=== PATIENT | male | born 1990 | race Caucasian/White ===

== ENCOUNTER 2016-08-28 15:37 | Inpatient (IN) | payer BC, OTHER ==
[~2016-08-28] VITALS: Ht 188 cm; Wt 85.0 kg
[~2016-08-28 15:37] MED LIST: GABA1CAP5 PO; ZLF/50 PO
[2016-08-28 16:57] LABS: HEMATOCRIT 46.8 % (42-52); MEAN CELL VOLUME 90.2 fL (80-100); MEAN CORPUSCULAR HEMOGLOBIN 30.4 pg (25-34); MEAN CORPUSCULAR HGB CONC 33.8 g/dl (32-36); MEAN PLATELET VOLUME 10.3 fL (7.4-10.4); PLATELET COUNT 222 K/uL (130-400); RED BLOOD COUNT 5.19 M/uL (4.7-6.1); WHITE BLOOD COUNT 8.57 K/uL (4.8-10.8)
[2016-08-28 17:16] LABS: ACETAMINOPHEN < 2 ug/ml (10-30); BUN/CREATININE RATIO 12.4 (10-20); CALCIUM 8.4 mg/dl (8.5-10.1); CREATININE 0.9 mg/dl (0.60-1.40); POTASSIUM 4.2 mmol/L (3.5-5.1)
[2016-08-28 17:26] LABS: THYROID STIMULATING HORMONE 0.298 uIu/ml (0.300-4.500)
--- NOTE | 2016-08-28 17:52 | EMERGENCY ROOM VISIT NOTE ---
History Report prepared by Andres: [facility] Under the Supervision of: Dr. Omero Alexander M.D. First contact with patient: 15:52 Chief Complaint: MENTAL HEALTH EVALUATION Stated Complaint: MENTAL HEALTH EVAL History of Present Illness The patient is a 25 year old male with manic depression disorder who presents to the Emergency Room with complaints of increasing suicidal ideations that started after being brought to [facility] days ago. Per the police, the patient was brought from [facility]. The patient had a hearing today, and the stipulation from the rough rounder is that if the patient commits to a treatment facility, the patient will his group home sentence, which was for violating PFA, converted to probation time. The police state that there have been some incidents with the patient in [facility], and there is a 302 petition for him. Per the patient, he tried to kill himself 3 days ago when he first got to group home. The patient was put in a room to change clothing, and he pulled his shoelaces out and had his laces tied around his neck hoping the group home staff would wait until he could successfully kill himself. The patient was caught in the act and placed on suicide watch. The next night, he says that he took his blanket and ripped it into little pieces, and tied the pieces around a light, and tried to hang himself, but the group home staff busted the door open and took his clothes off to make sure the patient has no way to hang himself again. The patient notes that he has been telling group home staff that he needs help. Today, the patient states that he got really suicidal during the hearing, and he currently wants to kill himself. The patient says that he has not been on any medications for any of his psychiatric issues, and hasn't been on any for a year. He says that he has no other chronic medical issues other than his psychiatric ones. The patient does not drink alcohol, but he does note lots of drug use. Source of History: patient, police Onset: 3 days ago Position: other (global - suicidal ideations) Symptom Intensity: tried to hang himself twice in past 3 days Quality: other (depression and suicidal ideation) Timing: worsening Associated Symptoms: No fevers Note: Associated symptoms: Currently wants to kill himself. Review of Systems See HPI for pertinent positives & negatives. A total of 10 systems reviewed and were otherwise negative. Past Medical & Surgical Medical Problems: (1) Encounter for wound re-check (2) No pertinent past medical history (3) No pertinent past surgical history (4) Pilonidal cyst Family History No pertinent family history Social History Smoking Status: Heavy Tobacco Smoker Alcohol Use: none Drug Use: other (admits to drug use) Marital Status: in relationship Housing Status: lives with significant other Occupation Status: employed Current/Historical Medications No Active Prescriptions or Reported Meds Allergies Coded Allergies: Penicillins (Verified Allergy, Mild, Hives, itching, 08/28/16) Tramadol (Unverified Adverse Reaction, Unknown, ITCHING, 08/28/16) Physical Exam Vital Signs Date Time Temp Pulse Resp B/P Pulse Ox O2 Delivery O2 Flow Rate FiO2 08/28/16 17:53 61 18 119/75 61 Room Air 08/28/16 15:53 36.7 80 18 119/80 100 Room Air Physical Exam Constitutional: Vital signs reviewed. Eyes: Pupils are equal round reactive to light. Conjunctiva are noninjected. ENT: Pharynx is clear without erythema or exudate. Mucous membranes are moist. Neck supple without meningeal signs. Respiratory: Clear to auscultation bilaterally. Breath sounds are equal bilaterally. Cardiovascular: Regular rate and rhythm. No rubs or gallops. GI: Soft, nondistended and nontender. Bowel sounds are present. Musculoskeletal: No peripheral edema. No lower extremity tenderness. Integumentary: No cyanosis. Neurological: The patient is awake and alert. No focal deficits. Psychiatric: Guarded affect. Medical Decision & Procedures Laboratory Results 08/28/16 16:38 08/28/16 16:38 Test 08/28/16 16:00 08/28/16 16:38 Urine Opiates Screen NEG (NEG) Urine Methadone, Qualitative NEG (NEG) Urine Barbiturates NEG (NEG) Urine Phencyclidine (PCP) Level NEG (NEG) Ur Amphetamine/Methamphetamine POS (NEG) MDMA (Ecstasy) Screen NEG (NEG) Urine Benzodiazepines Screen NEG (NEG) Urine Cocaine Metabolite NEG (NEG) Urine Marijuana (THC) NEG (NEG) Red Blood Count 5.19 M/uL (4.7-6.1) Mean Corpuscular Volume 90.2 fL (80-100) Mean Corpuscular Hemoglobin 30.4 pg (25-34) Mean Corpuscular Hemoglobin Concent 33.8 g/dl (32-36) RDW Standard Deviation 43.7 fL (36.4-46.3) RDW Coefficient of Variation 13.2 % (11.5-14.5) Mean Platelet Volume 10.3 fL (7.4-10.4) Anion Gap 3.0 mmol/L (3-11) Est Creatinine Clear Calc Drug Dose 144.7 ml/min Estimated GFR () 136.1 Estimated GFR (Non- 117.5 BUN/Creatinine Ratio 12.4 (10-20) Calcium Level 8.4 mg/dl (8.5-10.1) Total Bilirubin 0.6 mg/dl (0.2-1) Direct Bilirubin 0.2 mg/dl (0-0.2) Aspartate Amino Transf (AST/SGOT) 20 U/L (15-37) Alanine Aminotransferase (ALT/SGPT) 70 U/L (12-78) Alkaline Phosphatase 58 U/L (45-117) Total Protein 7.1 gm/dl (6.4-8.2) Albumin 3.9 gm/dl (3.4-5.0) Thyroid Stimulating Hormone (TSH) 0.298 uIu/ml (0.300-4.500) Free Thyroxine 1.23 ng/dl (0.80-1.60) Salicylates Level 2.7 mg/dl (2.8-20) Acetaminophen Level < 2 ug/ml (10-30) Ethyl Alcohol mg/dL < 3.0 mg/dl (0-3) Laboratory results as reviewed by me. ED Course 1555: The patient was evaluated in room A8. A complete history and physical exam was performed. 1640: I talked to the nurse practitioner for [facility] - she will talk to Dr. Amaro of psychiatry and recommends that I sign the 302 for the patient. She thinks that Dr. Amaro will agree. 1656: I discussed the patient with Dr. Amaro - psychiatry - she would recommend that sign the 302. 1830: I was notified by the sample case porter that the patient will be going to [facility] for further evaluation. The patient expressed verbal understanding and agreement of the plan. Medical Decision This is a 25-year-old male brought here for mental health evaluation. I did perform a limited focused review of portions of the patient's old chart on the electronic medical record. The patient was here for depression in August of last year. He also overdosed on Gabapentin, and eloped during assessment. I did evaluate the patient as noted above. The patient attempted to kill himself twice over the past several days. He says he is suicidal and is not on any psychiatric medications at this time despite his bipolar disorder. I did order and personally review the patient's urine drug screen as described above. I did order and review the patient's blood work as noted in the electronic medical record. The patient was medically cleared. He was evaluated by [facility] who issued a 302 warrant for involuntary commitment. I did discuss the case with the psychiatrist ironworker machine operator, Dr. Amaro, who agreed that the patient should be involuntarily committed. I did sign the 302. Bed search was initiated. He was evaluated and accepted to [facility]. Consults Time Called: 1635 Consulting Physician: Nurse practitioner for [facility] Returned Call: 1640 I talked to the nurse practitioner for [facility] - she will talk to Dr. Amaro of psychiatry and recommends that I sign the 302 for the patient. She thinks that Dr. Amaro will agree. Additional Consults: Time Called: -- Consulted Physician: Dr. Amaro - psychiatry Returned Call: 1655 Additional Comments: I discussed the patient with Dr. Amaro - psychiatry - she would recommend that sign the 302. Impression Primary Impression: Suicide attempt by hanging Additional Impression: Mood disorder Scribe Attestation The scribe's documentation has been prepared under my direct and personally reviewed by me in its entirety. I confirm that the note above accurately reflects all work, treatment, procedures, and medical decision making performed by me. Departure Information Dispostion Mental Health Acute Care Prescriptions No Active Prescriptions or Reported Meds Referrals [facility] (PCP) Patient Instructions My [facility] Problem Qualifiers Primary Impression: Suicide attempt by hanging Encounter type: initial encounter Qualified Codes: T71.162A - Asphyxiation due to hanging, intentional self-harm, initial encounter
[2016-08-28 17:55] LABS: BENZODIAZEPINE, URINE NEG (NEG); COCAINE,URINE NEG (NEG); PHENCYCLIDINE, URINE NEG (NEG)
[2016-08-28] MEDS ORDERED: NURSING VERBAL MED ORDER ONE ×2 (18:30→19:00)
[2016-08-28] MEDS ORDERED: ACETAMINOPHEN 325 MG TAB PO PRN (19:00)
[2016-08-28] MEDS ORDERED: ALUMINUM/MAGNESIUM SUSP 30 ML UDC PO PRN (19:00)
[2016-08-28] MEDS ORDERED: SODIUM CHLORIDE 0.65% NA SOLN 45 ML (OCEAN) PRN (19:00)
[2016-08-28] MEDS ORDERED: MAGNESIUM HYDROXIDE SUSP 30 ML UDC PO PRN (19:00)
[2016-08-28] MEDS ORDERED: hydrOXYzine HCL 25 MG TAB PO PRN ×2 (19:00)
[2016-08-28] MEDS ORDERED: BISMUTH SUBSALICYLATE PER ML OMNICELL CHARGE PO PRN (19:00)
[2016-08-28 22:35] VITALS: O2SAT 96
[2016-08-28 23:02] VITALS: BP 133/77; PULSE 82; TEMP 36.7; Ht 188 cm; Wt 85.0 kg
[2016-08-29 06:36] VITALS: BP_SYST 114; BP_SYST 123; BP_DIAS 73; BP_DIAS 75; PULSE 45; PULSE 55; TEMP 36.3
[2016-08-29] MEDS ORDERED: SERTRALINE HCL 50 MG TAB PO ONE (12:30)
[2016-08-29] MEDS ORDERED: CLONIDINE HCL 0.1 MG TAB PO ONE (12:30)
--- NOTE | 2016-08-29 12:35 | Psychiatric History & Physical ---
History Date of Service Aug 29, 2016. Identifying Data Manuel Germain is a 25-year-old male who currently lives in [place], has a history of polysubstance abuse and mood disorder with multiple suicide attempts and psychiatric admissions to the [facility], and was admitted on a 302 involuntary commitment after intermediate staff brought him to the emergency room due to multiple suicide attempts while in intermediate in the context of arrest for a PFA violation. Chief Complaint "I felt there was no possible way to get out of the situation I was in". History of Present Illness This is the patient's first admission to our behavioral health unit, although he 's had 4 past admissions to the [facility] for depression and suicide attempts. According to records, he was brought to the emergency room yesterday by police. He had been in intermediate for the past several days after being arrested for violating a PFA from his ex-girlfriend. He had tried to kill himself multiple times while in intermediate, once by pulling his shoelaces out and tying them around his neck, and then again by ripping his blanket into pieces, tying them around to light, and attempting to hang himself. He had a hearing yesterday, during which the pulping machine operator gave him the option of getting psychiatric treatment or returning to intermediate. The patient admitted he was suicidal during the hearing, and admitted active suicidal thoughts in the emergency room. He said that he had been off psychotropic medications for a year due to losing insurance, and admitted to using methamphetamine and/or bath salts daily for over a year, and drug screen was positive for amphetamines/methamphetamine. Staff at the intermediate had completed a 302 petition. On admission to the unit, he gave some inconsistent reports to staff regarding his substance use and suicidality. He admitted that he had several suicide attempts in the 5 days prior to admission, including by going to the top of the building after he had violated the PFA, holding a knife to his throat, and having to be talked down by police. On my assessment today, the patient states that his girlfriend of 8 years filed a PFA against him about a week and a half ago, alleging that he had threatened her life, which he denies doing. He states that she has also filed PFA's against him in the past, although he denies ever harming her, stating "I'd never hurt a woman." He says that he was and is still in love with her, and has struggled to accept that the relationship is over. He says that he became "obsessed" with "getting closure," so contacted her via text message on Saturday, 5 days ago. He says he made statements that she would "rather see me ," and he assumes that she then contacted police, because shortly afterward, he saw a helicopter come into his neighborhood with its spotlight on, and thinks they were looking for him." He states that drove by her house at a high rate of speed, 205 miles per hour, and saw that "the house was packed with police." He says he was driving extremely fast, hoping that someone would pulling out in front of him, "just know cares in the world, just wanted to end it." He then drove to his parent's house, where he got into a confrontation with his father. He said "I knew I was going to do intermediate time, and that wasn't gonna help." He then "took off and ran to the [place]," and then climb to the top of the building and hid on the roof, where he watched people searching for him in the [place] with flashlights. They eventually saw him, and he got out a pocket knife and threatened to kill himself, refusing to get down from the building. He says "I had a knife to my throat and was ready to end it." Eventually one of the officers talked him into coming down, and he was taken to intermediate. He feels he was misinformed in intermediate, as he says he was told he would get mental health help , but instead was placed in a cell. He admits he attempted to kill himself twice in intermediate, as detailed above. He is now feeling more hopeful that he could feel better, stating "this is an amazing facility, I just want to get back on my meds I can get back on track and get back to being me." He feels he is accepting that his relationship was over and "it's time to move on." He admits that he has been depressed recently and describes his mood as "on a downward spiral" for the past couple of weeks. His mood tends to vacillate between depressed and angry and switches multiple times a day. He endorses decreased appetite with a 30 pound weight loss over the past month or so, distractibility , crying spells, and decreased sleep. Sleep is chronically disrupted and he sleeps with the television on. He endorses irritability and anger outbursts, stating that he is a very impulsive person and "if I get mad at someone, I'm in the car on the way to their house to kill them." He reports impulsivity, stating "when I'm in that mind state I just don't care, that's how my mind works." When he was on clonidine in the past he felt it was helpful and allowed him to "just stop and think." There are some noted contradictions, including that he later denies ever having been violent or aggressive towards others. He says he has a history of "manic depression, not bipolar," but denies all symptoms consistent with hypomania or graeme, and says his graeme consists of "extreme anger, and nothing can talk me out of it." He denies episodes of elevated euphoric mood, increased energy, or decreased need for sleep outside of his stimulant abuse. He denies symptoms of generalized anxiety , PTSD, OCD, panic attacks, and psychosis. He admits to daily use of bath salts and/or meth amphetamine for the past 2-1/2 years, which he smokes. He does not feel this is a problem, stating that he's been using for over 2 years every day, and "no one ever knew. It gets me back to my happy place. The only reason I was doing the drugs was because I didn't have the meds." Past Psychiatric History Current OP Treatment: no current treatment Prior OP Treatment: psychiatrist, therapist Prior Psych Hospitalizations: [facility] (4 admissions, the first 2 were 10 years ago, and the second two were in 2016) Access to a Gun: No Suicide Attempts: Yes (the patient estimates he has had 40 suicide attempts, some by overdose, threats to cut himself, and hanging) Past Medication Trials The patient states that the only medicines he been on in the past were a combination of Zoloft 50 mg, clonidine, and Thorazine for sleep, which were helpful. He stopped them when he lost insurance and stopped going to appointments. Additional Notes Patient states he's been diagnosed with "manic depressive with impulsivity and anger." Records from the [facility] are not available, as his last admission was in August 2015, and these are apparently stored offsite. He does not know the names of his previous outpatient providers, and has not been in outpatient treatment for over a year. Violence risk assessment: The patient denies ever being physically aggressive towards others, but at other times gives conflicting statements, stating that he will get angry and "be in the car on the way to someone's house to kill them. " He does have a PFA against him from his girlfriend, who alleged that he threatened her life, which he denies. His substance use is also a risk factor for violence to others. Past Medical/Surgical History History of Concussion/Seizure: Yes (the patient reports a history of a head injury in 2005) PCP is Dr. Tone Linton Allergies Allergies: Coded Allergies: Penicillins (Verified Allergy, Mild, Hives, itching, 08/28/16) Tramadol (Unverified Adverse Reaction, Unknown, ITCHING, 08/28/16) Home Medications No Active Prescriptions or Reported Meds Family History No pertinent family history History of Suicide: No History of Substance Abuse: Yes (brother is an addict and has been incarcerated for selling drugs, and multiple family members smoke marijuana) Psychiatric History: Yes (mother is diagnosed with depression and is on sertraline. Father has unknown mood disorder.) Alcohol Use Alcohol Use In Past 12 Months: No AUDIT Total Score: 0 Smoking Use Smoking Status: Light Tobacco Smoker Smokes up to one half pack per day. Has not smoked in about 5 days due to being incarcerated. Substance History Has used synthetic stimulants and/or methamphetamine (smokes it) daily for the past 2-1/2 years. Last use was 08/24/2016. Drug screen is positive for methamphetamine. Long history of prescription opiate abuse, including Percocet, Suboxone, or "whatever is around." Last use was within the past week, but frequency of use has decreased recently and is once every 1-4 weeks. In the past he has had opiate withdrawal, and attended a detox in 2009. He denies any history of IV drug use. He has used cannabis in the past, but not in several months, although he cannot recall the exact timing of his last use. His longest period of sobriety was for 2 years. He initially denies any negative effects of his substance use, but then admits that a couple of years ago he was fired from his job at [employer] due to his substance use, but does not see this as a negative, as he was then hired at [employer] where he makes more money. He denies any history of legal problems stemming from his substance use. Personal History Lives in: [place] Childhood: Raised by both parents, who are still together and live in [place]. Has a good relationship with them, "they are amazing people, let me do whatever I want , and I thank them for that." He has one older brother who he refers to as "a piece of shit," who was recently released from [facility] on drug charges. 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 He states he has a very good job, makes good money, and enjoys it. His has already spoken to his employer, and is anxious to be discharged as soon as possible to return to work. Relationship History: never Children: none Legal History: reported (recently arrested for PFA violation) Psychological Trauma History: Other (denies) Additional Comments: Had been with his girlfriend for 8 years, but she now has a PFA against him. He has a good friend who is known since elementary school, Jose, who is supportive. Review of Systems 10 systems were reviewed and are negative except as stated above. Examination Physical Examination The physical exam performed in the emergency room by Dr. Alexander was reviewed and accepted for the purposes of this admission Vital Signs Vital Signs Past 12 Hours Date Time Temp Pulse Resp B/P Pulse Ox O2 Delivery O2 Flow Rate FiO2 08/29/16 06:36 36.3 45 18 123/73 55 114/75 Laboratory Results Last 24 Hours Test 08/28/16 16:00 08/28/16 16:38 Urine Opiates Screen NEG Urine Methadone, Qualitative NEG Urine Barbiturates NEG Urine Phencyclidine (PCP) Level NEG Ur Amphetamine/Methamphetamine POS MDMA (Ecstasy) Screen NEG Urine Benzodiazepines Screen NEG Urine Cocaine Metabolite NEG Urine Marijuana (THC) NEG White Blood Count 8.57 K/uL Red Blood Count 5.19 M/uL Hemoglobin 15.8 g/dL Hematocrit 46.8 % Mean Corpuscular Volume 90.2 fL Mean Corpuscular Hemoglobin 30.4 pg Mean Corpuscular Hemoglobin Concent 33.8 g/dl RDW Standard Deviation 43.7 fL RDW Coefficient of Variation 13.2 % Platelet Count 222 K/uL Mean Platelet Volume 10.3 fL Sodium Level 143 mmol/L Potassium Level 4.2 mmol/L Chloride Level 108 mmol/L Carbon Dioxide Level 32 mmol/L Anion Gap 3.0 mmol/L Blood Urea Nitrogen 11 mg/dl Creatinine 0.90 mg/dl Est Creatinine Clear Calc Drug Dose 144.7 ml/min Estimated GFR () 136.1 Estimated GFR (Non- 117.5 BUN/Creatinine Ratio 12.4 Random Glucose 107 mg/dl Calcium Level 8.4 mg/dl Total Bilirubin 0.6 mg/dl Direct Bilirubin 0.2 mg/dl Aspartate Amino Transf (AST/SGOT) 20 U/L Alanine Aminotransferase (ALT/SGPT) 70 U/L Alkaline Phosphatase 58 U/L Total Protein 7.1 gm/dl Albumin 3.9 gm/dl Thyroid Stimulating Hormone (TSH) 0.298 uIu/ml Free Thyroxine 1.23 ng/dl Salicylates Level 2.7 mg/dl Acetaminophen Level < 2 ug/ml Ethyl Alcohol mg/dL < 3.0 mg/dl Mental Examination During interview pt is: alert and oriented, cooperative Appearance: appropriately dressed, appropriately groomed (red hair styled in a estonian with a long stevenson) Eye contact is: good Motor behavior is: steady gait & station, no abnormal motor movements Speech: normal in rate, rhythm & volume Affect: other (full range) Mood is: other ("I'm feeling better just being here") Thought process: goal directed Thought content: reality based without delusions Suicidal thought are: denied (feels safe here, but admits that he was suicidal and attempted suicide 3 times in the past 5 days) Homicidal thoughts are: denied Hallucinations: denies auditory, denies visual Cognition: memory grossly intact, attention grossly intact, language grossly intact Intelligence estimated to be: consistent with level of education Insight: impaired Judgement: impaired Impression / Recommendations Impression 25-year-old single white male with a history of poorly defined mood disorder and pervasive substance abuse who presents on referral from the intermediate where he attempted suicide twice in 4 days after being arrested for violating a PFA from his ex-girlfriend. He has been out of treatment for about a year, but reports previous good response to sertraline, chlorpromazine, and clonidine. He endorses symptoms consistent with depression, intermittent explosive disorder, and substance abuse. Although he is willing to resume medications, he has very poor insight into the role his drug abuse may be playing in his symptoms. He remains at high risk to both himself and others, given his recent PFA and then violation of it and multiple suicide attempts. Inpatient treatment is the least restrictive and most appropriate venue at this time. He is admitted on an involuntary 302 commitment. Inventory Assets Strengths: Employment, supportive family Risk Factors Assessment Male: Yes : Yes /single/: Yes Health problems: No Mental Health Diagnoses: Yes Substance use disorders: Yes Previous attempt: Yes Previous attempt;highly lethal: Yes Family history of suicide: No Previous psychiatric stay: Yes Hopelessness: No Smoker: Yes Protective Factors Assessment : No Responsible for young children: No Employed: Yes Stable relationships: No Supportive family: Yes Good rapport with provider: No Recommendations (1) Suicide attempt by hanging -Every 15 minute checks for safety -Encourage group attendance and participation, work on healthy coping skills and discharge safety plan. -Involve parents in family meeting. -Coordinate care with the legal system and his interface control officer. (2) Depression not otherwise specified -Although patient reports a history of "manic depression," he does not meet criteria for bipolar disorder. The differential includes substance-induced depression and major depressive disorder. Since he reports a previous good response to sertraline and is requesting to resume it, will start at 50 mg daily. We reviewed the risks, benefits, and potential side effects, and he agreed. We'll monitor for mood destabilization or development of manic symptoms. -He is requesting to resume Thorazine for sleep. Although this would not be my first choice, he reports a previous good response to it, and it may also help with his anger, so will start 50 mg daily at bedtime and monitor for response. -Educated the patient about his diagnosis and things that he can do to improve and stabilize his mood, including addressing his drug abuse, developing healthier habits with respect to sleep and diet, and engaging in therapy. (3) Rule out intermittent explosive disorder -The patient reports a previous good response to clonidine for his impulsivity and anger, and would like to resume it. Will start 0.1 mg daily, and adjust as needed. -Would be helpful to get collateral information from his family, as he gives inconsistent reports about his anger outbursts and aggression. (4) Stimulant abuse -The patient has been using meth amphetamine and or synthetics stimulants daily for the over 2 years. He has very little insight into the concerns with this. -Educated the patient about the risks of ongoing stimulant abuse, including worsening of mood and anxiety, impaired judgment, worsening irritability and anger outbursts, impulsivity, legal sequelae, health problems, interactions with other medications, and . He is unwilling to consider the recommendation for inpatient rehabilitation or even outpatient substance abuse treatment, feeling that he can stop using on his own. We will need to continue to address this throughout the course of his stay, and would recommend coordinating with his interface control officer regarding concerns for his substance use. -Would not prescribe him any controlled substances due to the high risk of abuse , misuse, and negative outcomes. (5) Opiate abuse, continuous -The patient states that his opiate use has been decreased in recent months, using only once a week to once a month, so is at low risk for opiate withdrawal. -He will require ongoing education about the risks of continued substance abuse and the recommendations for abstinence. (6) Involuntary commitment We reviewed his 302 commitment, and answered questions about restrictions on gun ownership. He was informed that per [place] law, he cannot own, purchase, or possess firearms, and that he could pursue legal recourse through the courts should he wish to have his firearm rights reinstated. He expressed understanding. -Will continue to gather information to determine the need for further commitment on an involuntary status throughout the course of his stay. CPT Code Initial Hospital Care: 62008 Problem Qualifiers (1) Suicide attempt by hanging: Encounter type: initial encounter Qualified Codes: T71.162A - Asphyxiation due to hanging, intentional self-harm, initial encounter
[2016-08-29 12:58] VITALS: BP 129/82; PULSE 93
[2016-08-29] MEDS: NICOTINE POLACRILEX 2 MG GUM MT PRN (14:07)
[2016-08-29] MEDS: CHLORPROMAZINE HCL 25 MG TAB PO SCH (21:46)
[2016-08-30 08:09] VITALS: BP 129/70; PULSE 58; TEMP 36.6
[2016-08-30] MEDS: CLONIDINE HCL 0.1 MG TAB PO SCH (08:51)
[2016-08-30] MEDS: SERTRALINE HCL 50 MG TAB PO SCH (08:51)
[2016-08-30] MEDS: NICOTINE POLACRILEX 2 MG GUM MT PRN ×2 (09:24→16:33)
--- NOTE | 2016-08-30 13:20 | Psychiatric Progress Notes ---
Progress Note Date of Service Aug 30, 2016. Interval History Manuel Germain is a 25-year-old male who currently lives in [place], has a history of polysubstance abuse and mood disorder with multiple suicide attempts and psychiatric admissions to the [facility], and was admitted on a 302 involuntary commitment after [facility] staff brought him to the emergency room due to multiple suicide attempts while in [facility] in the context of arrest for a PFA violation. Chief Complaint "I feel so much better ". Subjective Patient was seen & assessed interval progress reviewed with nursing. Staff report he is going to groups, taking medications without difficulty, and has a meeting with his parents today. 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 He has not talked to anyone from the legal system to determine who he is PO is or when they will meet. He was living with his girlfriend until she got the PFA, but after discharge plans to live with a friend in [place]. His parents also live in [place]. He his not sure where he will follow up after discharge. He denies withdrawal symptoms, and denies SI and HI. [facility] from the [facility] were reviewed and indicate that he was threatening to kill himself and others, said he would be in penitentiary for life for murder. He also said he would shoot himself when he got out of [facility], and that he should have slit his throat. He says he doesn't have any guns and neither does his friend he's living with. His parents have guns and they are locked up. He denies thoughts of harming others, and says he does not plan to have further contact with his ex. He states he can already feel the effects of the clonidine , as he is able to stop and think more before he speaks. Sleep Information Total Hours of Sleep: 7.00 Meal Information Percent of Breakfast Consumed: 100 Percent of Lunch Consumed: 100 Percent of Dinner Consumed: 100 Mental Status Exam During interview pt is: alert and oriented, cooperative Appearance: appropriately dressed, appropriately groomed (red hair styled in a swedish with a long stevenson, smells strongly of cologne) Eye contact is: good Motor behavior is: steady gait & station, no abnormal motor movements Speech: normal in rate, rhythm & volume Affect: other (full range, inappropriately euthymic at times) Mood is: other ("so much better") Thought process: goal directed Thought content: reality based without delusions Suicidal thought are: denied (feels safe here, but admits that he was suicidal and attempted suicide 3 times in the 5 days prior to admission) Homicidal thoughts are: denied Hallucinations: denies auditory, denies visual Cognition: memory grossly intact, attention grossly intact, language grossly intact Intelligence estimated to be: consistent with level of education Insight: impaired Judgement: impaired Impression 25-year-old single white male with a history of poorly defined mood disorder and pervasive substance abuse who presents on referral from the [facility] where he attempted suicide twice in 4 days after being arrested for violating a PFA from his ex-girlfriend. He has been out of treatment for about a year, but reports previous good response to sertraline, chlorpromazine, and clonidine. He endorses symptoms consistent with depression, intermittent explosive disorder, antisocial personality disorder, and substance abuse. Although he is willing to resume medications, he has very poor insight into the role his drug abuse may be playing in his symptoms. He remains at high risk to both himself and others, given his recent PFA and then violation of it and multiple suicide attempts. Inpatient treatment is the least restrictive and most appropriate venue at this time. He is admitted on an involuntary 302 commitment. Plan (1) Suicide attempt by hanging -Every 15 minute checks for safety -Encourage group attendance and participation, work on healthy coping skills and discharge safety plan. -Involve parents in family meeting. -Coordinate care with the legal system and his occupational medicine officer. 08/29 -Denying suicidality here, and no self injury or agitation. Although he appears much improved in a controlled setting of the unit, he had multiple very serious suicide attempts prior to admission, and therefore warrants a period of monitoring. Premature discharge could result in rapid relapse and harm to self. -Patient to work on discharge safety plan, involving his parents who are coming in for a meeting today. He states that he has no guns, the friend whom he will be living with has no guns, and his parents' guns are locked. (2) Depression not otherwise specified -Although patient reports a history of "manic depression," he does not meet criteria for bipolar disorder. The differential includes substance-induced depression and major depressive disorder. Since he reports a previous good response to sertraline and is requesting to resume it, will start at 50 mg daily. We reviewed the risks, benefits, and potential side effects, and he agreed. We'll monitor for mood destabilization or development of manic symptoms. -He is requesting to resume Thorazine for sleep. Although this would not be my first choice, he reports a previous good response to it, and it may also help with his anger, so will start 50 mg daily at bedtime and monitor for response. -Educated the patient about his diagnosis and things that he can do to improve and stabilize his mood, including addressing his drug abuse, developing healthier habits with respect to sleep and diet, and engaging in therapy. (3) Rule out intermittent explosive disorder -The patient reports a previous good response to clonidine for his impulsivity and anger, and would like to resume it. Will start 0.1 mg daily, and adjust as needed. -Would be helpful to get collateral information from his family, as he gives inconsistent reports about his anger outbursts and aggression. (4) Stimulant abuse -The patient has been using meth amphetamine and or synthetics stimulants daily for the over 2 years. He has very little insight into the concerns with this. -Educated the patient about the risks of ongoing stimulant abuse, including worsening of mood and anxiety, impaired judgment, worsening irritability and anger outbursts, impulsivity, legal sequelae, health problems, interactions with other medications, and . He is unwilling to consider the recommendation for inpatient rehabilitation or even outpatient substance abuse treatment, feeling that he can stop using on his own. We will need to continue to address this throughout the course of his stay, and would recommend coordinating with his occupational medicine officer regarding concerns for his substance use. -Would not prescribe him any controlled substances due to the high risk of abuse , misuse, and negative outcomes. (5) Opiate abuse, continuous -The patient states that his opiate use has been decreased in recent months, using only once a week to once a month, so is at low risk for opiate withdrawal. -He will require ongoing education about the risks of continued substance abuse and the recommendations for abstinence. (6) Involuntary commitment We reviewed his 302 commitment, and answered questions about restrictions on gun ownership. He was informed that per [place] law, he cannot own, purchase, or possess firearms, and that he could pursue legal recourse through the courts should he wish to have his firearm rights reinstated. He expressed understanding. -Will continue to gather information to determine the need for further commitment on an involuntary status throughout the course of his stay. (7) Antisocial behavior Rule out antisocial personality disorder. Patient endorses impulsivity, and reckless disregard for his safety and the safety of others, irritability and aggressiveness, and has criminal charges for threats to his girlfriend. Discharge / Aftercare Planning Payroll Clerk: Name: not right now Visit Code E&M Code: 66214 Inventory Assets Strengths: Employment, supportive family Risk Factors Assessment Male: Yes : Yes /single/: Yes Health problems: No Mental Health Diagnoses: Yes Substance use disorders: Yes Previous attempt: Yes Previous attempt;highly lethal: Yes Family history of suicide: No Previous psychiatric stay: Yes Hopelessness: No Smoker: Yes Protective Factors Assessment : No Responsible for young children: No Employed: Yes Stable relationships: No Supportive family: Yes Good rapport with provider: No Data Vital Signs Last 24 Hrs: Date Time Temp Pulse Resp B/P Pulse Ox O2 Delivery O2 Flow Rate FiO2 08/30/16 08:09 36.6 58 16 129/70 Meds Administered Last 24 Hrs: Meds Administered (Past 24Hrs) Medications (Trade) Dose Ordered Sig/Aleida Route Start Time Stop Time Status Last Admin Dose Admin Hydroxyzine HCl (Vistaril Tab) 50 mg HSZ PRN PO 08/28/16 19:00 09/27/16 18:59 08/29/16 00:04 50 MG Nicotine Polacrilex (Nicorette 2MG Gum) 1-2 PIECES Q2H PRN MT 08/28/16 19:45 09/27/16 19:44 08/30/16 09:24 2 PIECE Sertraline HCl (Zoloft Tab) 50 mg QAM PO 08/30/16 09:00 09/29/16 08:59 08/30/16 08:51 50 MG Sertraline HCl (Zoloft Tab) 50 mg NOW ONCE PO 08/29/16 12:30 08/29/16 12:31 DC 08/29/16 12:55 50 MG Clonidine HCl (Catapres Tab) 0.1 mg QAM PO 08/30/16 09:00 09/29/16 08:59 08/30/16 08:51 0.1 MG Clonidine HCl (Catapres Tab) 0.1 mg NOW ONCE PO 08/29/16 12:30 08/29/16 12:31 DC 08/29/16 12:54 0.1 MG Chlorpromazine HCl (Thorazine Tab) 50 mg HS PO 08/29/16 22:00 09/28/16 21:59 08/29/16 21:46 50 MG Problem Qualifiers (1) Suicide attempt by hanging: Encounter type: initial encounter Qualified Codes: T71.162A - Asphyxiation due to hanging, intentional self-harm, initial encounter
[2016-08-30] MEDS: BENZOCAINE 20% (ORAJEL) 11.9 GM TUBE MT PRN ×2 (17:28→23:16)
[2016-08-30] MEDS: CHLORPROMAZINE HCL 25 MG TAB PO SCH (22:10)
[2016-08-31 07:10] VITALS: BP_SYST 147; BP_SYST 149; BP_DIAS 75; BP_DIAS 80; PULSE 54; PULSE 76; TEMP 36.5
[2016-08-31] MEDS: SERTRALINE HCL 50 MG TAB PO SCH (08:57)
[2016-08-31 08:58] VITALS: BP 131/80; PULSE 79
[2016-08-31] MEDS: CLONIDINE HCL 0.1 MG TAB PO SCH (08:58)
[2016-08-31] MEDS: CHLORPROMAZINE HCL 25 MG TAB PO SCH (21:27)
[2016-08-31] MEDS: BENZOCAINE 20% (ORAJEL) 11.9 GM TUBE MT PRN (21:53)
[2016-09-01 07:01] VITALS: BP_SYST 133; BP_SYST 153; BP_DIAS 75; BP_DIAS 83; PULSE 47; PULSE 81; TEMP 36.4
--- NOTE | 2016-09-01 07:54 | Psychiatric Progress Notes ---
Progress Note Date of Service Sep 01, 2016. Interval History Manuel Germain is a 25-year-old male who currently lives in [place], has a history of polysubstance abuse and mood disorder with multiple suicide attempts and psychiatric admissions to the [facility], and was admitted on a 302 involuntary commitment after senior care staff brought him to the emergency room due to multiple suicide attempts while in senior care in the context of arrest for a PFA violation. Chief Complaint "[]". Subjective Patient was seen & assessed interval progress reviewed with nursing. Staff report Sleep Information Total Hours of Sleep: 6.25 Meal Information Percent of Breakfast Consumed: 95 Percent of Lunch Consumed: 100 Percent of Dinner Consumed: 100 Mental Status Exam During interview pt is: alert and oriented, cooperative Appearance: appropriately dressed, appropriately groomed (red hair styled in a tamazight with a long stevenson, smells strongly of cologne) Eye contact is: good Motor behavior is: steady gait & station, no abnormal motor movements Speech: normal in rate, rhythm & volume Affect: other (full range, inappropriately euthymic at times) Mood is: other ("so much better") Thought process: goal directed Thought content: reality based without delusions Suicidal thought are: denied (feels safe here, but admits that he was suicidal and attempted suicide 3 times in the 5 days prior to admission) Homicidal thoughts are: denied Hallucinations: denies auditory, denies visual Cognition: memory grossly intact, attention grossly intact, language grossly intact Intelligence estimated to be: consistent with level of education Insight: impaired Judgement: impaired Impression 25-year-old single white male with a history of poorly defined mood disorder and pervasive substance abuse who presents on referral from the senior care where he attempted suicide twice in 4 days after being arrested for violating a PFA from his ex-girlfriend. He has been out of treatment for about a year, but reports previous good response to sertraline, chlorpromazine, and clonidine. He endorses symptoms consistent with depression, intermittent explosive disorder, antisocial personality disorder, and substance abuse. Although he is willing to resume medications, he has very poor insight into the role his drug abuse may be playing in his symptoms. He remains at high risk to both himself and others, given his recent PFA and then violation of it and multiple suicide attempts. Inpatient treatment is the least restrictive and most appropriate venue at this time. He is admitted on an involuntary 302 commitment. Plan (1) Suicide attempt by hanging -Every 15 minute checks for safety -Encourage group attendance and participation, work on healthy coping skills and discharge safety plan. -Involve parents in family meeting. -Coordinate care with the legal system and his ict help desk officer. 08/29 -Denying suicidality here, and no self injury or agitation. Although he appears much improved in a controlled setting of the unit, he had multiple very serious suicide attempts prior to admission, and therefore warrants a period of monitoring. Premature discharge could result in rapid relapse and harm to self. -Patient to work on discharge safety plan, involving his parents who are coming in for a meeting today. He states that he has no guns, the friend whom he will be living with has no guns, and his parents' guns are locked. (2) Depression not otherwise specified -Although patient reports a history of "manic depression," he does not meet criteria for bipolar disorder. The differential includes substance-induced depression and major depressive disorder. Since he reports a previous good response to sertraline and is requesting to resume it, will start at 50 mg daily. We reviewed the risks, benefits, and potential side effects, and he agreed. We'll monitor for mood destabilization or development of manic symptoms. -He is requesting to resume Thorazine for sleep. Although this would not be my first choice, he reports a previous good response to it, and it may also help with his anger, so will start 50 mg daily at bedtime and monitor for response. -Educated the patient about his diagnosis and things that he can do to improve and stabilize his mood, including addressing his drug abuse, developing healthier habits with respect to sleep and diet, and engaging in therapy. (3) Rule out intermittent explosive disorder -The patient reports a previous good response to clonidine for his impulsivity and anger, and would like to resume it. Will start 0.1 mg daily, and adjust as needed. -Would be helpful to get collateral information from his family, as he gives inconsistent reports about his anger outbursts and aggression. (4) Stimulant abuse -The patient has been using meth amphetamine and or synthetics stimulants daily for the over 2 years. He has very little insight into the concerns with this. -Educated the patient about the risks of ongoing stimulant abuse, including worsening of mood and anxiety, impaired judgment, worsening irritability and anger outbursts, impulsivity, legal sequelae, health problems, interactions with other medications, and . He is unwilling to consider the recommendation for inpatient rehabilitation or even outpatient substance abuse treatment, feeling that he can stop using on his own. We will need to continue to address this throughout the course of his stay, and would recommend coordinating with his ict help desk officer regarding concerns for his substance use. -Would not prescribe him any controlled substances due to the high risk of abuse , misuse, and negative outcomes. (5) Opiate abuse, continuous -The patient states that his opiate use has been decreased in recent months, using only once a week to once a month, so is at low risk for opiate withdrawal. -He will require ongoing education about the risks of continued substance abuse and the recommendations for abstinence. (6) Involuntary commitment We reviewed his 302 commitment, and answered questions about restrictions on gun ownership. He was informed that per [place] law, he cannot own, purchase, or possess firearms, and that he could pursue legal recourse through the courts should he wish to have his firearm rights reinstated. He expressed understanding. -Will continue to gather information to determine the need for further commitment on an involuntary status throughout the course of his stay. (7) Antisocial behavior Rule out antisocial personality disorder. Patient endorses impulsivity, and reckless disregard for his safety and the safety of others, irritability and aggressiveness, and has criminal charges for threats to his girlfriend. Discharge / Aftercare Planning Primary Care Physician: Name: Dr Linton Phone Number: [phone] Appointment Notes: as needed Psychiatrist: Name: [facility] referral pending Phone Number: [phone] Appointment Notes: multiple calls placed - pending Therapist: Name: [facility] pending Phone Number: [phone] Appointment Notes: pending Hydrology Technician: Name: [facility] blended case [facility] [place] Phone Number: [phone] Appointment Notes: case started- awaiting call back - Intake Alejandra Davila notified Inventory Assets Strengths: Employment, supportive family Risk Factors Assessment Male: Yes : Yes /single/: Yes Health problems: No Mental Health Diagnoses: Yes Substance use disorders: Yes Previous attempt: Yes Previous attempt;highly lethal: Yes Family history of suicide: No Previous psychiatric stay: Yes Hopelessness: No Smoker: Yes Protective Factors Assessment : No Responsible for young children: No Employed: Yes Stable relationships: No Supportive family: Yes Good rapport with provider: No Data Vital Signs Last 24 Hrs: Date Time Temp Pulse Resp B/P Pulse Ox O2 Delivery O2 Flow Rate FiO2 09/01/16 07:01 36.4 47 16 153/83 81 133/75 08/31/16 08:58 79 131/80 Meds Administered Last 24 Hrs: Meds Administered (Past 24Hrs) Medications (Trade) Dose Ordered Sig/Aleida Route Start Time Stop Time Status Last Admin Dose Admin Sertraline HCl (Zoloft Tab) 50 mg QAM PO 08/30/16 09:00 09/29/16 08:59 08/31/16 08:57 50 MG Clonidine HCl (Catapres Tab) 0.1 mg QAM PO 08/30/16 09:00 09/29/16 08:59 08/31/16 08:58 0.1 MG Benzocaine (Orajel 2% Oral Gel) 1 appln Q4 PRN MT 08/30/16 16:45 09/29/16 16:44 08/31/16 21:53 1 APPLN Problem Qualifiers (1) Suicide attempt by hanging: Encounter type: initial encounter Qualified Codes: T71.162A - Asphyxiation due to hanging, intentional self-harm, initial encounter
--- NOTE | 2016-09-01 08:21 | Psychiatric Progress Notes ---
Progress Note Date of Service Aug 31, 2016. LATE ENTRY Interval History Manuel Germain is a 25-year-old male who currently lives in [place], has a history of polysubstance abuse and mood disorder with multiple suicide attempts and psychiatric admissions to the [facility], and was admitted on a 302 involuntary commitment after detention staff brought him to the emergency room due to multiple suicide attempts while in detention in the context of arrest for a PFA violation. Chief Complaint "I just needed to get back on meds". Subjective Patient was seen & assessed interval progress reviewed with Treatment Team. No issues overnight. Positive in interactions. Minimizing somewhat the seriousness of the self harm gesture that resulted in hospitalization but glad to be alive and noted lots of support from his coworkers and boss at [facility] [employer] [facility]. 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 He is glad that his stay here is counting toward his 90 day probation and discussed importance of following all conditions of his probation. Review of Systems Psych: denies symptoms other than stated above Constitutional: denied Cardiovascular: denied GI: denied Neurologic: denied Sleep Information Total Hours of Sleep: 6.25 Meal Information Percent of Breakfast Consumed: 95 Percent of Lunch Consumed: 100 Percent of Dinner Consumed: 100 Mental Status Exam During interview pt is: alert and oriented, cooperative Appearance: appropriately dressed, appropriately groomed Eye contact is: good Motor behavior is: steady gait & station, no abnormal motor movements Speech: normal in rate, rhythm & volume Affect: euthymic Mood is: other ("9/10") Thought process: goal directed, clear, coherent Thought content: reality based without delusions Suicidal thought are: denied Homicidal thoughts are: denied Hallucinations: denies auditory, denies visual Cognition: memory grossly intact, attention grossly intact, language grossly intact Intelligence estimated to be: consistent with level of education Insight: limited Judgement: limited Impression 25-year-old single white male with a history of poorly defined mood disorder and pervasive substance abuse who presents on referral from the detention where he attempted suicide twice in 4 days after being arrested for violating a PFA from his ex-girlfriend. He has been out of treatment for about a year, but reports previous good response to sertraline, chlorpromazine, and clonidine. He endorses symptoms consistent with depression, intermittent explosive disorder, antisocial personality disorder, and substance abuse. Although he is willing to resume medications, he has very limited insight into the role his drug abuse may be playing in his symptoms. He is admitted on an involuntary 302 commitment. Plan (1) Suicide attempt by hanging -Every 15 minute checks for safety -Encourage group attendance and participation, work on healthy coping skills and discharge safety plan. -Involve parents in family meeting. -Coordinate care with the legal system and his coastal/harbor defense officer. 08/29 -Denying suicidality here, and no self injury or agitation. Although he appears much improved in a controlled setting of the unit, he had multiple very serious suicide attempts prior to admission, and therefore warrants a period of monitoring. Premature discharge could result in rapid relapse and harm to self. -Patient to work on discharge safety plan, involving his parents who are coming in for a meeting today. He states that he has no guns, the friend whom he will be living with has no guns, and his parents' guns are locked. (2) Depression not otherwise specified 08/30/16 -Although patient reports a history of "manic depression," he does not meet criteria for bipolar disorder. The differential includes substance- induced depression and major depressive disorder. Since he reports a previous good response to sertraline and is requesting to resume it, will start at 50 mg daily. We reviewed the risks, benefits, and potential side effects, and he agreed. We'll monitor for mood destabilization or development of manic symptoms. -He is requesting to resume Thorazine for sleep. Although this would not be my first choice, he reports a previous good response to it, and it may also help with his anger, so will start 50 mg daily at bedtime and monitor for response. -Educated the patient about his diagnosis and things that he can do to improve and stabilize his mood, including addressing his drug abuse, developing healthier habits with respect to sleep and diet, and engaging in therapy 08/31--tolerating meds, no changes. Reviewed HR. (3) Rule out intermittent explosive disorder 08/30/16-The patient reports a previous good response to clonidine for his impulsivity and anger, and would like to resume it. Will start 0.1 mg daily, and adjust as needed. -Would be helpful to get collateral information from his family, as he gives inconsistent reports about his anger outbursts and aggression. (4) Stimulant abuse 08/30/16-The patient has been using meth amphetamine and or synthetics stimulants daily for the over 2 years. He has very little insight into the concerns with this. -Educated the patient about the risks of ongoing stimulant abuse, including worsening of mood and anxiety, impaired judgment, worsening irritability and anger outbursts, impulsivity, legal sequelae, health problems, interactions with other medications, and . He is unwilling to consider the recommendation for inpatient rehabilitation or even outpatient substance abuse treatment, feeling that he can stop using on his own. We will need to continue to address this throughout the course of his stay, and would recommend coordinating with his coastal/harbor defense officer regarding concerns for his substance use. -Would not prescribe him any controlled substances due to the high risk of abuse , misuse, and negative outcomes. (5) Opiate abuse, continuous 08/30/16 -The patient states that his opiate use has been decreased in recent months, using only once a week to once a month, so is at low risk for opiate withdrawal. -He will require ongoing education about the risks of continued substance abuse and the recommendations for abstinence. (6) Involuntary commitment 08/30/16--We reviewed his 302 commitment, and answered questions about restrictions on gun ownership. He was informed that per [place] law, he cannot own, purchase, or possess firearms, and that he could pursue legal recourse through the courts should he wish to have his firearm rights reinstated. He expressed understanding. -Will continue to gather information to determine the need for further commitment on an involuntary status throughout the course of his stay. 08/31/16--need for continued monitoring on 302. Doesn't meet criteria at this time for 303. (7) Antisocial behavior 08/30/16 Rule out antisocial personality disorder. Patient endorses impulsivity , and reckless disregard for his safety and the safety of others, irritability and aggressiveness, and has criminal charges for threats to his girlfriend. Discharge / Aftercare Planning Primary Care Physician: Name: Dr Linton Phone Number: Appointment Notes: as needed Psychiatrist: Name: [facility] referral pending Phone Number: [phone] Appointment Notes: multiple calls placed - pending Therapist: Name: [facility] pending Phone Number: [phone] Appointment Notes: pending Steel Placer: Name: DONG blended case [facility] Phone Number: [phone] Appointment Notes: case started- awaiting call back - Intake Alejandra Davila notified Inventory Assets Strengths: Employment, supportive family Risk Factors Assessment Male: Yes : Yes /single/: Yes Health problems: No Mental Health Diagnoses: Yes Substance use disorders: Yes Previous attempt: Yes Previous attempt;highly lethal: Yes Family history of suicide: No Previous psychiatric stay: Yes Hopelessness: No Smoker: Yes Protective Factors Assessment : No Responsible for young children: No Employed: Yes Stable relationships: No Supportive family: Yes Good rapport with provider: No Data Vital Signs Last 24 Hrs: Date Time Temp Pulse Resp B/P Pulse Ox O2 Delivery O2 Flow Rate FiO2 09/01/16 07:01 36.4 47 16 153/83 81 133/75 08/31/16 08:58 79 131/80 Meds Administered Last 24 Hrs: Meds Administered (Past 24Hrs) Medications (Trade) Dose Ordered Sig/Aleida Route Start Time Stop Time Status Last Admin Dose Admin Sertraline HCl (Zoloft Tab) 50 mg QAM PO 08/30/16 09:00 09/29/16 08:59 08/31/16 08:57 50 MG Clonidine HCl (Catapres Tab) 0.1 mg QAM PO 08/30/16 09:00 09/29/16 08:59 08/31/16 08:58 0.1 MG Benzocaine (Orajel 2% Oral Gel) 1 appln Q4 PRN MT 08/30/16 16:45 09/29/16 16:44 08/31/16 21:53 1 APPLN Problem Qualifiers (1) Suicide attempt by hanging: Encounter type: initial encounter Qualified Codes: T71.162A - Asphyxiation due to hanging, intentional self-harm, initial encounter
[2016-09-01] MEDS: SERTRALINE HCL 50 MG TAB PO SCH (08:52)
[2016-09-01] MEDS: CLONIDINE HCL 0.1 MG TAB PO SCH (08:54)
[2016-09-01] MEDS: BENZOCAINE 20% (ORAJEL) 11.9 GM TUBE MT PRN (11:26)
[2016-09-01] MEDS ORDERED: THR25 PO (12:15)
[2016-09-01] MEDS ORDERED: CTP1 PO (12:15)
[2016-09-01] MEDS ORDERED: ZLF50 PO (12:15)
--- NOTE | 2016-09-01 12:31 | Discharge Instructions ---
Discharge Information Report Includes Report will include the: Discharge Instructions & Summary Admission Admission Date / Time: Aug 28, 2016 at 18:35 Reason for Admission: Mood Disorder Nos Discharge Discharge Diagnosis / Problem: Depression not otherwise specified. Methamphetamine use disorder. Condition at Discharge: Good Discharge Goals Goal(s): Improve function, Improve disease control, Learn about illness, Therapeutic intervention Activity Recommendations Activity Limitations: per Instructions/Follow-up section . Instructions / Follow-Up Instructions / Follow-Up . SPECIAL CARE INSTRUCTIONS: 1. Follow through with your scheduled aftercare appointments. If unable to keep an appointment, please call to reschedule. 2. Take your medication only as prescribed. Medication should not be changed or stopped without the approval of your doctor. In the event of worsening symptoms or concerns about side effects, contact your doctor immediately. 3. Utilize new healthy coping skills, anger management skills, and stress management skills learned during your hospitalization. Journal feelings and process them with a support person. Identify stressors or situations that may result in relapse, deterioration or inappropriate behaviors and develop a plan to deal with those issues. 4. If your coping skills are ineffective and you are in crisis, contact your outpatient providers for direction. If unable to reach your providers, please call the CAN HELP LINE AT or go to the closest Emergency Room. 5. Avoid alcohol and un-prescribed drugs. 6. You have been provided with the Mental Health Advance Directives Pamphlet for your review. AFTERCARE APPOINTMENTS: * Please call your insurance company prior to your scheduled appointment to confirm your aftercare providers are covered. Take your insurance information to your appointments. . Discharge / Aftercare Planning Primary Care Physician: Name: Dr Linton Phone Number: Appointment Notes: as needed Psychiatrist: Name: [facility] referral pending Phone Number: [phone] Appointment Notes: multiple calls placed - pending Therapist: Name Of Therapist: [facility] pending Phone Number: [phone] Appointment Comments: pending Chief Technologist: Name: U blended case [facility] [place] Phone Number: [phone] Appointment Notes: case started- awaiting call back - Intake Alejandra Davila notified Other: Name of Appointment #1: [facility]; appointment pending; information faxed . Follow-Up Care Plan for Follow-Up Care: See above - referrals were made to [facility] for outpatient mental health care, the [facility] for case management, and to [facility] for substance abuse treatment. Please coordinate with them for appointment dates and times, as you are being discharged on a weekend and these offices are not open, so we cannot contact them today for that information. Current Hospital Diet Patient's current hospital diet: Regular Diet Discharge Diet Recommended Diet: Regular Diet Procedures Procedures Performed: No Pending Studies Pending Studies at Discharge: No Medical Emergencies . Who to Call and When: Medical Emergencies: For questions or emergencies related to your hospital stay, please contact the Inpatient Behavioral Health Unit at [phone]. A fabric and accessories estimator is on-call 26/11 for the Behavioral Health Unit for emergencies At any time you feel your situation is an emergency, you may also call 911 immediately. . Non-Emergent Contact Non-Emergency issues call your: Psychiatrist, Therapist, Chief Technologist Advance Directives Existing Advance Directive: No Do You Have an Existing Mental: No Existing Living Will: No Existing Power of Securities Broker: No Advance Directives Info Given: To Pt/S.O. Advance Directives Reason: Declines as Mental Health Visit. Discharge Summary Admission HPI Per the Admitting provider: This is the patient's first admission to our behavioral health unit, although he '[facility] and [facility]. According to records, he was brought to the emergency room yesterday by police. He had been in snf for the past several days after being arrested for violating a PFA from his ex-girlfriend. He had tried to kill himself multiple times while in snf, once by pulling his shoelaces out and tying them around his neck, and then again by ripping his blanket into pieces, tying them around to light, and attempting to hang himself. He had a hearing yesterday, during which the zmt operator gave him the option of getting psychiatric treatment or returning to snf. The patient admitted he was suicidal during the hearing, and admitted active suicidal thoughts in the emergency room. He said that he had been off psychotropic medications for a year due to losing insurance, and admitted to using methamphetamine and/or bath salts daily for over a year, and drug screen was positive for amphetamines/methamphetamine. Staff at the snf had completed a 302 petition. On admission to the unit, he gave some inconsistent reports to staff regarding his substance use and suicidality. He admitted that he had several suicide attempts in the 5 days prior to admission, including by going to the top of the building after he had violated the PFA, holding a knife to his throat, and having to be talked down by police. On my assessment today, the patient states that his girlfriend of 8 years filed a PFA against him about a week and a half ago, alleging that he had threatened her life, which he denies doing. He states that she has also filed PFA's against him in the past, although he denies ever harming her, stating "I'd never hurt a woman." He says that he was and is still in love with her, and has struggled to accept that the relationship is over. He says that he became "obsessed" with "getting closure," so contacted her via text message on Saturday, 5 days ago. He says he made statements that she would "rather see me ," and he assumes that she then contacted police, because shortly afterward, he saw a helicopter come into his neighborhood with its spotlight on, and thinks they were looking for him." He states that drove by her house at a high rate of speed, 205 miles per hour, and saw that "the house was packed with police." He says he was driving extremely fast, hoping that someone would pulling out in front of him, "just know cares in the world, just wanted to end it." He then drove to his parent's house, where he got into a confrontation with his father. He said "I knew I was going to do snf time, and that wasn't gonna help." He then "took off and ran to the [place]," and then climb to the top of the building and hid on the roof, where he watched people searching for him in the [place] with flashlights. They eventually saw him, and he got out a pocket knife and threatened to kill himself, refusing to get down from the building. He says "I had a knife to my throat and was ready to end it." Eventually one of the officers talked him into coming down, and he was taken to snf. He feels he was misinformed in snf, as he says he was told he would get mental health help , but instead was placed in a cell. He admits he attempted to kill himself twice in snf, as detailed above. He is now feeling more hopeful that he could feel better, stating "this is an amazing facility, I just want to get back on my meds I can get back on track and get back to being me." He feels he is accepting that his relationship was over and "it's time to move on." He admits that he has been depressed recently and describes his mood as "on a downward spiral" for the past couple of weeks. His mood tends to vacillate between depressed and angry and switches multiple times a day. He endorses decreased appetite with a 30 pound weight loss over the past month or so, distractibility , crying spells, and decreased sleep. Sleep is chronically disrupted and he sleeps with the television on. He endorses irritability and anger outbursts, stating that he is a very impulsive person and "if I get mad at someone, I'm in the car on the way to their house to kill them." He reports impulsivity, stating "when I'm in that mind state I just don't care, that's how my mind works." When he was on clonidine in the past he felt it was helpful and allowed him to "just stop and think." There are some noted contradictions, including that he later denies ever having been violent or aggressive towards others. He says he has a history of "manic depression, not bipolar," but denies all symptoms consistent with hypomania or graeme, and says his graeme consists of "extreme anger, and nothing can talk me out of it." He denies episodes of elevated euphoric mood, increased energy, or decreased need for sleep outside of his stimulant abuse. He denies symptoms of generalized anxiety , PTSD, OCD, panic attacks, and psychosis. He admits to daily use of bath salts and/or meth amphetamine for the past 2-1/2 years, which he smokes. He does not feel this is a problem, stating that he's been using for over 2 years every day, and "no one ever knew. It gets me back to my happy place. The only reason I was doing the drugs was because I didn't have the meds. Admission Exam Per the Admitting provider: Please see admission H&P. Consultations None. Hospital Course (1) Suicide attempt by hanging -Every 15 minute checks for safety -Encourage group attendance and participation, work on healthy coping skills and discharge safety plan. -Involve parents in family meeting. -Coordinate care with the legal system and his safety and security officer. 08/29 -Denying suicidality here, and no self injury or agitation. Although he appears much improved in a controlled setting of the unit, he had multiple very serious suicide attempts prior to admission, and therefore warrants a period of monitoring. Premature discharge could result in rapid relapse and harm to self. -Patient to work on discharge safety plan, involving his parents who are coming in for a meeting today. He states that he has no guns, the friend whom he will be living with has no guns, and his parents' guns are locked. (2) Depression not otherwise specified 08/30/16 -Although patient reports a history of "manic depression," he does not meet criteria for bipolar disorder. The differential includes substance- induced depression and major depressive disorder. Since he reports a previous good response to sertraline and is requesting to resume it, will start at 50 mg daily. We reviewed the risks, benefits, and potential side effects, and he agreed. We'll monitor for mood destabilization or development of manic symptoms. -He is requesting to resume Thorazine for sleep. Although this would not be my first choice, he reports a previous good response to it, and it may also help with his anger, so will start 50 mg daily at bedtime and monitor for response. -Educated the patient about his diagnosis and things that he can do to improve and stabilize his mood, including addressing his drug abuse, developing healthier habits with respect to sleep and diet, and engaging in therapy 08/31--tolerating meds, no changes. Reviewed HR. 09/01--has been stable, 302 will be up tomorrow, and as patient is anxious to leave. He has been participating fully in treatment and has gained the maximum benefit from inpatient treatment. --Prescriptions sent for Thorazine, clonidine, and sertraline for 30 day supply. --Referral was made to [facility], but they have not yet replied with an intake date and time. The patient has been given information on their walk in therapy clinic and their contact number so that he can contact them on Saturday. He has also been referred to the base service unit for a blended counter caser. (3) Rule out intermittent explosive disorder 08/30/16-The patient reports a previous good response to clonidine for his impulsivity and anger, and would like to resume it. Will start 0.1 mg daily, and adjust as needed. -Would be helpful to get collateral information from his family, as he gives inconsistent reports about his anger outbursts and aggression. (4) Stimulant abuse 08/30/16-The patient has been using meth amphetamine and or synthetics stimulants daily for the over 2 years. He has very little insight into the concerns with this. -Educated the patient about the risks of ongoing stimulant abuse, including worsening of mood and anxiety, impaired judgment, worsening irritability and anger outbursts, impulsivity, legal sequelae, health problems, interactions with other medications, and . He is unwilling to consider the recommendation for inpatient rehabilitation or even outpatient substance abuse treatment, feeling that he can stop using on his own. We will need to continue to address this throughout the course of his stay, and would recommend coordinating with his safety and security officer regarding concerns for his substance use. -Would not prescribe him any controlled substances due to the high risk of abuse , misuse, and negative outcomes. 09/01--referral made to [facility] for intensive outpatient substance abuse treatment. Appointment date and time have not yet been received, and patient will need follow-up on this on Saturday. (5) Opiate abuse, continuous 08/30/16 -The patient states that his opiate use has been decreased in recent months, using only once a week to once a month, so is at low risk for opiate withdrawal. -He will require ongoing education about the risks of continued substance abuse and the recommendations for abstinence. (6) Involuntary commitment 08/30/16--We reviewed his 302 commitment, and answered questions about restrictions on gun ownership. He was informed that per [place] law, he cannot own, purchase, or possess firearms, and that he could pursue legal recourse through the courts should he wish to have his firearm rights reinstated. He expressed understanding. -Will continue to gather information to determine the need for further commitment on an involuntary status throughout the course of his stay. 08/31/16--need for continued monitoring on 302. Doesn't meet criteria at this time for 303. (7) Antisocial behavior 08/30/16 Rule out antisocial personality disorder. Patient endorses impulsivity , and reckless disregard for his safety and the safety of others, irritability and aggressiveness, and has criminal charges for threats to his girlfriend. Risk Factors Assessment Male: Yes : Yes /single/: Yes Access to guns: No Health problems: No Mental Health Diagnoses: Yes Substance use disorders: Yes Previous attempt: Yes Previous attempt;highly lethal: Yes Family history of suicide: No Previous psychiatric stay: Yes Hopelessness: No Smoker: Yes Protective Factors Assessment : No Responsible for young children: No Employed: Yes Stable relationships: No Supportive family: Yes Good rapport with provider: No Absence of risk factors above: Yes (risk factors were mitigated by treating mood, anxiety, and anger with medications, involving the patient in groups and therapy on the unit, working on healthy coping skills and her discharge safety plan, a family meeting with his parents, coordination with the legal system, referring him for outpatient mental health and substance abuse treatment, educating him about the risks of ongoing substance abuse and the recommendations for abstinence. He has participated fully in treatment, is tolerating medications without difficulty, has consistently denied suicidality and homicidality here, has been calm and cooperative without episodes of agitation or aggression, and is agreeing to follow-up with outpatient providers. As he is no longer at acute risk of harm to himself or others, he can be discharged and managed as an outpatient at this time.) Day of Discharge Assessment Hospital course: On admission, the patient was diagnosed with depression not otherwise specified. Although he reported a history of "manic depression," he did not meet criteria for bipolar disorder, and has not displayed any symptoms consistent with graeme or hypomania here. Antisocial personality traits was added to his diagnosis, as well as polysubstance abuse. He continued to display limited insight into his substance use, does not feel that it is a problem, but does state that he is planning to abstain after discharge, and was referred to [facility] for [facility] abuse treatment. His mood improved throughout the course of his stay, and he tolerated his medications well. He processed his experience in snf as well as his long-standing substance abuse in the group setting. He had a family meeting with his parents on 08/30/2016. He said he did not realize how bad things had gotten until he reflected on the past week, an altercation that led to his girlfriend getting a PFA against him. He said he felt like inpatient treatment was helping him, and that in the future he wanted to be compliant with treatment and stay away from women. He worked on a plan to get a pillbox, and his mother and friends at work are going to help him with monitoring his medications. His parents confirmed that he will not have access to guns at either his parents house or his friend's house. His affect was bright on the unit, he was positive and cooperative with peers and staff, and was performing his ADLs independently. Day of discharge assessment: The patient states that his mood is "great, much better." He is going to groups and finds them helpful. He denies any side effects from his medications , and thinks that they are helping him. He is willing to follow-up with outpatient services, and to abstain from drug use, stating he doesn't even want to use as his mood is so much improved. He denies thoughts of harming himself or anyone else. He has spoken with his boss, and has a plan to spend Saturday morning setting up his outpatient care and going to the probation office, and then plans to resume work, which he is looking forward to. He is thankful for the treatment he received here, and hopeful for the future. Well nourished, well developed WM appearing stated age. Casually dressed and adequately groomed. Calm and cooperative. Seated in NAD, with fair eye contact and no abnormal movements. Speech is normal rate, volume, and tone. Mood is "great, much better," and affect is stable and congruent. Thoughts are linear, logical and goal directed. The patient denied suicidal and homicidal ideation and was able to safety plan. No paranoia, delusions, or hallucinations , and did not appear to be responding to internal stimuli. Cognition was grossly intact. Alert and oriented to person, place and time. Intelligence is consistent with level of education. Insight and and judgment are fair. Laboratory Test 08/28/16 16:00 08/28/16 16:38 Urine Opiates Screen NEG Urine Methadone, Qualitative NEG Urine Barbiturates NEG Urine Phencyclidine (PCP) Level NEG Urine Amphetamines Confirmation Pending Ur Amphetamine/Methamphetamine POS Urine Methamphetamine Confirmation Pending MDMA (Ecstasy) Screen NEG Urine Benzodiazepines Screen NEG Urine Cocaine Metabolite NEG Urine Marijuana (THC) NEG White Blood Count 8.57 Red Blood Count 5.19 Hemoglobin 15.8 Hematocrit 46.8 Mean Corpuscular Volume 90.2 Mean Corpuscular Hemoglobin 30.4 Mean Corpuscular Hemoglobin Concent 33.8 RDW Standard Deviation 43.7 RDW Coefficient of Variation 13.2 Platelet Count 222 Mean Platelet Volume 10.3 Sodium Level 143 Potassium Level 4.2 Chloride Level 108 Carbon Dioxide Level 32 Anion Gap 3.0 Blood Urea Nitrogen 11 Creatinine 0.90 Est Creatinine Clear Calc Drug Dose 144.7 Estimated GFR () 136.1 Estimated GFR (Non- 117.5 BUN/Creatinine Ratio 12.4 Random Glucose 107 Calcium Level 8.4 Total Bilirubin 0.6 Direct Bilirubin 0.2 Aspartate Amino Transferase (AST) 20 Alanine Aminotransferase (ALT) 70 Alkaline Phosphatase 58 Total Protein 7.1 Albumin 3.9 Thyroid Stimulating Hormone (TSH) 0.298 Free Thyroxine 1.23 Salicylates Level 2.7 Acetaminophen Level < 2 Ethyl Alcohol mg/dL < 3.0 Total Time Total Time Spent (min): Greater than 30 minutes Total Time Included: examination of the patient, discharge planning, medication reconciliation Tobacco Cessation at Discharge Smoking Status: Light Tobacco Smoker FDA approved Prescription: declined med & out pt counseling (declined med, but planning to stop smoking and will have substance abuse treatment at [facility]) Problem Qualifiers (1) Suicide attempt by hanging: Encounter type: initial encounter Qualified Codes: T71.162A - Asphyxiation due to hanging, intentional self-harm, initial encounter
[2017-01-25] MEDS ORDERED: OXYC-57 PO (07:02)
[2017-03-09] MEDS ORDERED: DIVA500T3 PO (21:27)
[2017-03-09] MEDS ORDERED: IBUP-103 PO (21:29)
== END 2016-09-01 13:40 | disposition home or self-care (01) | DRG 883 ==
LOC: ENRESERVDT → ENRESERVTM → C.EDB 15:38 → C.MHU 18:35
PROVIDERS: ADMIT Psychiatry & Neurology Psychiatry; ATTEND Psychiatry & Neurology Psychiatry
DX: F63.81 Intermittent explosive disorder (principal); R45.851 Suicidal ideations; F32.9 Major depressive disorder, single episode, unspecified; F60.2 Antisocial personality disorder; F15.10 Other stimulant abuse, uncomplicated; F17.200 Nicotine dependence, unspecified, uncomplicated; F11.10 Opioid abuse, uncomplicated; Z81.8 Family history of other mental and behavioral disorders; Z81.3 Family history of other psychoactive substance abuse and dependence

== ENCOUNTER 2017-01-24 18:48 | Inpatient (IN) | payer BC ==
[~2017-01-24] VITALS: Ht 188 cm; Wt 85.0 kg
[~2017-01-24 18:48] MED LIST changes: +CTP1 PO; -GABA1CAP5 PO; +THR25 PO; -ZLF/50 PO; +ZLF50 PO
[2017-01-24] MEDS ORDERED: QUET1TAB34 PO (19:49)
[2017-01-24] MEDS ORDERED: DIVA250T PO (19:49)
[2017-01-24 20:45] LABS: BASO % 0.4 %; BASO ABS # 0.04 K/uL (0-0.2); COMPLETE YES; EOS % 4.2 %; HEMATOCRIT 42.8 % (42-52); IG% 0.3 %; LYMPH ABS # 1.37 K/uL (1.2-3.4); MEAN CELL VOLUME 89.5 fL (80-100); MEAN CORPUSCULAR HEMOGLOBIN 29.7 pg (25-34); MEAN CORPUSCULAR HGB CONC 33.2 g/dl (32-36); MEAN PLATELET VOLUME 9.6 fL (7.4-10.4); MONO % 8.5 %; NEUT % 73.6 %; PLATELET COUNT 201 K/uL (130-400); RED BLOOD COUNT 4.78 M/uL (4.7-6.1); WHITE BLOOD COUNT 10.56 K/uL (4.8-10.8)
[2017-01-24 21:07] LABS: ALT/SGPT 23 U/L (12-78); AST/SGOT 7 U/L (15-37); BLOOD UREA NITROGEN 12 mg/dl (7-18); BUN/CREATININE RATIO 14.1 (10-20); CALCIUM 8.3 mg/dl (8.5-10.1); CARBON DIOXIDE 29 mmol/L (21-32); CHLORIDE 107 mmol/L (98-107); CREATININE 0.87 mg/dl (0.60-1.40); GLUCOSE 140 mg/dl (70-99); POTASSIUM 3.8 mmol/L (3.5-5.1); SODIUM 142 mmol/L (136-145)
[2017-01-24 21:12] LABS: ALB/GLOB RATIO 1.1 (0.9-2); ALKALINE PHOSPHATASE 49 U/L (45-117)
[2017-01-24] MEDS ORDERED: SODIUM CHLORIDE 0.9% 1000ML 1,000 ML IV STA (21:30)
[2017-01-24 21:41] LABS: URINE APPEARANCE CLOUDY (CLEAR); URINE BILIRUBIN NEG (NEG); URINE COLOR YELLOW; URINE EPITHELIAL CELL AUTO 20-30 /lpf (0-5); URINE NITRITE NEG (NEG); URINE PH 6.5 (4.5-7.5); UROBILINOGEN NEG (NEG); ZZUR CULT IF INDIC CLEAN CATCH YES
[2017-01-24 21:42] LABS: MANUAL MICROSCOPIC REQUIRED? NO; REVIEW REQ? NO
--- NOTE | 2017-01-24 21:52 | DIAGNOSTIC IMAGING REPORT ---
ABD/PELVIS WITHOUT FOR STONE CLINICAL HISTORY: 26 years-old Male presenting with right flank/abdominal pain. TECHNIQUE: Multidetector CT of the abdomen and pelvis was performed without the use of intravenous contrast. IV contrast: None. A dose lowering technique was used consistent with the principles of ALARA (as low as reasonably achievable). COMPARISON: None. CT DOSE (mGy.cm): The estimated cumulative dose is 1087.86 mGy.cm. FINDINGS: Instructor Adjunct Surgical Technician topogram: Unremarkable. Lung bases: Minimal dependent changes likely atelectasis. Normal heart size. No pericardial or pleural effusion. Liver: Normal morphology. No liver lesion. Patent hepatic vasculature. Biliary: No gross biliary ductal dilatation allowing for noncontrast technique. Extensive gallbladder wall thickening. The gallbladder is not significantly distended. Pancreas: Normal noncontrast appearance. Spleen: Normal noncontrast appearance. Adrenal glands: Normal noncontrast appearance. Kidneys and ureters: Normal. No hydronephrosis. Bladder: Incompletely evaluated secondary to underdistention. Pelvic organs: Prostate and seminal vesicles normal. Bowel: Moderate stool burden throughout normal caliber colon. Normal appendix. No bowel obstruction. Feces in the distal small bowel consistent with delayed transit. Stomach is distended with ingested material. Peritoneal cavity: Trace free fluid in the pelvis. Vasculature: Normal noncontrast appearance. Lymph nodes: Multiple prominent subcentimeter retroperitoneal and upper abdominal lymph nodes, possibly reactive. Abdominal wall: Normal. Musculoskeletal: Normal. IMPRESSION: 1. Significant gallbladder wall thickening. Despite the gallbladder being nondistended, this is concerning for acute cholecystitis. Further evaluation with ultrasound to be considered as clinically warranted. The report will be called/faxed according to standard departmental protocol. Electronically signed by: Grayson Conner M.D. 01/24/2017 9:51 PM Dictated Date/Time: 01/24/2017 9:45 PM
--- NOTE | 2017-01-24 22:53 | DIAGNOSTIC IMAGING REPORT ---
GALLBLADDER-ABD LIMITED CLINICAL HISTORY: 26 years-old Male presenting with right flank/abd pain, gb thickening on CT. TECHNIQUE: Real-time grayscale and limited color Doppler ultrasound imaging of the abdomen limited to the right upper quadrant was performed. COMPARISON: Noncontrast CT of the abdomen and pelvis performed earlier the same day. FINDINGS: Pancreas: Obscured due to overlying bowel gas. Liver: Normal echogenicity and echotexture. The liver measures 19 cm in maximal sagittal dimension. No sonographic evidence of hepatic mass. Main portal vein patent with normal directional flow. Biliary: No intrahepatic biliary ductal dilatation. Common bile duct measures up to 3 mm in diameter. Gallbladder: Significant gallbladder wall thickening measuring up to 11 mm. Small amount of pericholecystic fluid. Gallstones and sludge also noted. Right kidney: Normal in appearance and size, measuring 11.2 cm. No hydronephrosis. Ascites: None. Vasculature: Visualized portions of the aorta and IVC patent. IMPRESSION: Findings consistent with acute cholecystitis. No evidence of intrahepatic or extra hepatic biliary ductal dilatation. Electronically signed by: Grayson Conner M.D. 01/24/2017 10:52 PM Dictated Date/Time: 01/24/2017 10:48 PM
--- NOTE | 2017-01-24 23:43 | History and Physical ---
History & Physical Date Jan 24, 2017. Chief Complaint back and rib pain History of Present Illness The patient is a 26 year old male with complaints of back and now rib pain CT and u/s show thickened gb with stones and sludge c/w acute cholecystitis Past Medical/Surgical History Medical Problems: (1) Antisocial behavior (2) Depression not otherwise specified (3) Encounter for wound re-check (4) Involuntary commitment (5) No pertinent past medical history (6) No pertinent past surgical history (7) Opiate abuse, continuous (8) Pilonidal cyst (9) Rule out intermittent explosive disorder (10) Stimulant abuse Additional History Hepatic Disease: No Endocrine Disorder: No Kidney Disease: No Hypertension: No Heart Disease: No Other: depression Allergies Coded Allergies: Penicillins (Verified Allergy, Mild, Hives, itching, 01/24/17) Tramadol (Unverified Adverse Reaction, Unknown, ITCHING, 01/24/17) Home Medications Scheduled Divalproex Sodium (Depakote Er), 250 MG PO BID Quetiapine Fumarate (Seroquel), 100 MG PO HS Physical Examination Skin: warm/dry, no rash Eyes: sclerae normal Head: atraumatic Neck: supple Respiratory/Chest: no respiratory distress Cardiovascular: regular rate, rhythm Abdomen / GI: normal bowel sounds, non tender Neurologic/Psych: alert Diagnosis acute cholecystitis Plan of Treatment 01/24/17- admit with acute cholecystitis- will plan for laparoscopic cholecystectomy tomorrow. IV fluids, atbx, analgesics and antiemetics
[2017-01-24] MEDS ORDERED: ONDANSETRON INJ 2 MG/ML 2 ML VIAL IV PRN (23:45)
[2017-01-24] MEDS ORDERED: HYDROmorphone INJ 1 MG/ML SYR IV PRN (23:45)
[2017-01-24] MEDS ORDERED: HYDROmorphone INJ 0.5 MG/0.5 ML SYR IV PRN (23:45)
[2017-01-24] MEDS ORDERED: PROMETHAZINE HCL INJ 25 MG in SODIUM CHLORIDE 0.9% 50ML 50 ML IV PRN (23:45)
[2017-01-25] VITALS (8 sets, daily range): BP systolic 107–130; BP diastolic 64–85; PULSE 52–88; TEMP 36.1–36.8; O2SAT 96–100; Ht 188 cm; Wt 85.0 kg
[2017-01-25] MEDS: QUETIAPINE FUMARATE 100 MG TAB PO SCH ×2 (00:21→22:03)
[2017-01-25] MEDS: DIVALPROEX 250 MG EXTENDED REL TAB PO SCH ×2 (00:22→20:52)
[2017-01-25] MEDS: METRONIDAZOLE / NSS 500 MG in PREMIXED NSS 100 ML IV SCH ×3 (02:12→18:47)
[2017-01-25] MEDS: KETOROLAC TROMETHAMINE 30 MG/ML VIAL IV. SCH ×4 (02:12→19:23)
[2017-01-25] MEDS: LACTATED RINGER'S 1000ML 1,000 ML IV SCH ×2 (02:13→13:39)
[2017-01-25] MEDS: CIPROFLOXACIN / D5W 400 MG in PREMIXED IN D5W 200 ML IV SCH ×2 (02:13→13:40)
--- NOTE | 2017-01-25 06:21 | EMERGENCY ROOM VISIT NOTE ---
History First contact with patient: 21:10 Chief Complaint: RIB PAIN Stated Complaint: ACUTE CHOLECYSTITIS History of Present Illness The patient is a 26 year old male who presents to the Emergency Room with complaints of right-sided rib pain. The patient states that he was riding in a car when he developed a sharp pain in the right back which radiated into the ribs. He states that initially, he felt there was some swelling to the front of the ribs. He had one episode of vomiting. His pain has been gradually improving since then. The discomfort started approximately 4 hours ago. He states that the pain was at its worst, he could not get comfortable. He rates the discomfort a 9/10 at its worst. He had a bowel movement without relief. He took a Mobitz which did seem to offer him some relief. Patient states that his pain did start after eating a meal. He denies any history of similar symptoms. He denies any urinary symptoms, chest pain or shortness of breath. He denies any history of abdominal surgery. Review of Systems A complete 10 point review of systems was reviewed with the patient with pertinent positives and negatives as per history of present illness. All else were negative. Past Medical/Surgical History Medical Problems: (1) Acute cholecystitis (2) Antisocial behavior (3) Depression not otherwise specified (4) Encounter for wound re-check (5) Involuntary commitment (6) No pertinent past medical history (7) No pertinent past surgical history (8) Opiate abuse, continuous (9) Pilonidal cyst (10) Rule out intermittent explosive disorder (11) Stimulant abuse Family History No pertinent family history Social History Smoking Status: Current Every Day Smoker Alcohol Use: none Drug Use: other Marital Status: in relationship Housing Status: lives with significant other Occupation Status: employed Current/Historical Medications Scheduled Divalproex Sodium (Depakote Er), 250 MG PO BID Quetiapine Fumarate (Seroquel), 100 MG PO HS Physical Exam Vital Signs Date Time Temp Pulse Resp B/P (MAP) Pulse Ox O2 Delivery O2 Flow Rate FiO2 01/24/17 23:44 37.0 65 18 118/69 97 Room Air 01/24/17 21:13 60 18 142/89 99 Room Air 01/24/17 19:21 36.8 60 18 157/96 99 Room Air Pain Rating (0-10): 6.0 Physical Exam VITALS: Vitals are noted on the nurse's note and reviewed by myself. Vital signs stable. GENERAL: This is a 26-year-old male, in no acute distress, nondiaphoretic, well- developed well-nourished. EARS: External auditory canals clear, tympanic membranes pearly tolbert without erythema or effusion bilaterally. EYES: Pupils equal round and reactive to light and accommodation. MOUTH: Mucous membranes moist. HEART: Regular rate and rhythm without murmurs gallops or rubs. LUNGS: Clear to auscultation bilaterally without wheezes, rales or rhonchi. ABDOMEN: Positive bowel sounds x 4. Soft, nontender to palpation. Negative Parra's sign. MUSCULOSKELETAL: No tenderness of the ribs or back. NEURO: Patient was alert and oriented to person place and time. Medical Decision & Procedures ER Provider Diagnostic Interpretation: ABD/PELVIS WITHOUT FOR STONE IMPRESSION: 1. Significant gallbladder wall thickening. Despite the gallbladder being nondistended, this is concerning for acute cholecystitis. Further evaluation with ultrasound to be considered as clinically warranted. The report will be called/faxed according to standard departmental protocol. GALLBLADDER-ABD LIMITED IMPRESSION: Findings consistent with acute cholecystitis. No evidence of intrahepatic or extra hepatic biliary ductal dilatation. Laboratory Results 01/24/17 20:33 Red Blood Count 4.78, Mean Corpuscular Volume 89.5, Mean Corpuscular Hemoglobin 29.7, Mean Corpuscular Hemoglobin Concent 33.2, Mean Platelet Volume 9.6, Neutrophils (%) (Auto) 73.6, Lymphocytes (%) (Auto) 13.0, Monocytes (%) (Auto) 8.5, Eosinophils (%) (Auto) 4.2, Basophils (%) (Auto) 0.4, Neutrophils # (Auto) 7.78, Lymphocytes # (Auto) 1.37, Monocytes # (Auto) 0.90, Eosinophils # (Auto) 0.44, Basophils # (Auto) 0.04 01/24/17 20:33 Test 01/24/17 20:33 01/24/17 21:25 White Blood Count 10.56 K/uL (4.8-10.8) Red Blood Count 4.78 M/uL (4.7-6.1) Hemoglobin 14.2 g/dL (14.0-18.0) Hematocrit 42.8 % (42-52) Mean Corpuscular Volume 89.5 fL (80-100) Mean Corpuscular Hemoglobin 29.7 pg (25-34) Mean Corpuscular Hemoglobin Concent 33.2 g/dl (32-36) Platelet Count 201 K/uL (130-400) Mean Platelet Volume 9.6 fL (7.4-10.4) Neutrophils (%) (Auto) 73.6 % Lymphocytes (%) (Auto) 13.0 % Monocytes (%) (Auto) 8.5 % Eosinophils (%) (Auto) 4.2 % Basophils (%) (Auto) 0.4 % Neutrophils # (Auto) 7.78 K/uL (1.4-6.5) Lymphocytes # (Auto) 1.37 K/uL (1.2-3.4) Monocytes # (Auto) 0.90 K/uL (0.11-0.59) Eosinophils # (Auto) 0.44 K/uL (0-0.5) Basophils # (Auto) 0.04 K/uL (0-0.2) RDW Standard Deviation 43.1 fL (36.4-46.3) RDW Coefficient of Variation 13.1 % (11.5-14.5) Immature Granulocyte % (Auto) 0.3 % Immature Granulocyte # (Auto) 0.03 K/uL (0.00-0.02) Anion Gap 6.0 mmol/L (3-11) Est Creatinine Clear Calc Drug Dose 148.3 ml/min Estimated GFR () 137.1 Estimated GFR (Non- 118.3 BUN/Creatinine Ratio 14.1 (10-20) Calcium Level 8.3 mg/dl (8.5-10.1) Total Bilirubin 0.3 mg/dl (0.2-1) Aspartate Amino Transf (AST/SGOT) 7 U/L (15-37) Alanine Aminotransferase (ALT/SGPT) 23 U/L (12-78) Alkaline Phosphatase 49 U/L (45-117) Troponin I < 0.015 ng/ml (0-0.045) Total Protein 7.0 gm/dl (6.4-8.2) Albumin 3.7 gm/dl (3.4-5.0) Globulin 3.3 gm/dl (2.5-4.0) Albumin/Globulin Ratio 1.1 (0.9-2) Lipase 75 U/L (73-393) Urine Color YELLOW Urine Appearance CLOUDY (CLEAR) Urine pH 6.5 (4.5-7.5) Urine Specific Kiefer 1.030 (1.000-1.030) Urine Protein NEG (NEG) Urine Glucose (UA) NEG (NEG) Urine Ketones NEG (NEG) Urine Occult Blood NEG (NEG) Urine Nitrite NEG (NEG) Urine Bilirubin NEG (NEG) Urine Urobilinogen NEG (NEG) Urine Leukocyte Esterase SMALL (NEG) Urine WBC (Auto) 10-30 /hpf (0-5) Urine RBC (Auto) 0-4 /hpf (0-4) Urine Hyaline Casts (Auto) 10-30 /lpf (0-5) Urine Epithelial Cells (Auto) 20-30 /lpf (0-5) Urine Bacteria (Auto) NEG (NEG) Medications Administered Medications (Trade) Dose Ordered Sig/Aleida Route Start Time Stop Time Status Last Admin Dose Admin Sodium Chloride 1,000 ml @ 999 mls/hr Q1H1M STAT IV 01/24/17 21:30 01/24/17 22:30 DC 01/24/17 21:33 999 MLS/HR ED Course The patient was evaluated as above. Labs were drawn and IV access was obtained. Patient was medicated with 1 L normal saline solution. CT of the abdomen and pelvis was performed and read by radiology as above. Patient was reevaluated and findings were discussed. Ultrasound of the abdomen was ordered. Case was discussed with Dr. Flannery, general surgeon diamond powder mixer. Patient will be evaluated by him for treatment of acute cholecystitis. Medical Decision Differential diagnosis includes cholecystitis, pancreatitis, gastroenteritis, gastritis, kidney stone, pulmonary embolism, pneumonia, herpes zoster, among others. The patient is a 26-year-old male who presents today complaining of right rib/ abdominal pain. Labs were unremarkable. No leukocytosis, anemia or concerning electrolyte abnormalities. LFTs were not elevated. Kidney function within normal limits. Urinalysis was suggestive of infection. The patient's history initially seems suggestive of a kidney stone. CT was performed and did not show any evidence of stone, but did show some gallbladder wall thickening. Ultrasound of the right quadrant was then performed and showed evidence of acute cholecystitis. Patient was evaluated by the general surgeon for evaluation and treatment. Medication Reconcilliation Current Medication List: was personally reviewed by wv Blood Pressure Screening Patient's blood pressure: Elevated blood pressure Blood pressure disposition: Elevated BP felt to be situational Impression Primary Impression: Acute cholecystitis Departure Information Dispostion Admitted as an inpatient Referrals Tone Cummins M.D. (PCP) Forms WORK / SCHOOL INSTRUCTIONS, HOME CARE DOCUMENTATION FORM, IMPORTANT VISIT INFORMATION Patient Instructions [facility]
[2017-01-25] MEDS ORDERED: GLYCOPYRROLATE INJ 0.2 MG/ML VIAL ONE ×2 (06:45→08:14)
[2017-01-25] MEDS ORDERED: PROPOFOL IV EMULSION 10 MG/ML 20 ML VIAL IV ONE (06:45)
[2017-01-25] MEDS ORDERED: DEXAMETHASONE SOD INJ 4 MG/ML VIAL ONE (06:45)
[2017-01-25] MEDS ORDERED: FENTANYL CITRATE INJ 50 MCG/1 ML 2 ML VIAL ONE (06:45)
[2017-01-25] MEDS ORDERED: NEOSTIGMINE METHYLSULFATE 5 MG/5 ML SYR ONE (06:45)
[2017-01-25] MEDS ORDERED: MIDAZOLAM HCL 1 MG/ML 2ML VIAL ONE (06:45)
[2017-01-25] MEDS ORDERED: LIDOCAINE HCL 2% 2 ML VIAL (20MG/ML) ONE (06:45)
[2017-01-25] MEDS ORDERED: ONDANSETRON INJ 2 MG/ML 2 ML VIAL ONE (06:45)
[2017-01-25] MEDS ORDERED: OXYC-57 PO (07:02)
--- NOTE | 2017-01-25 07:04 | Discharge Instructions ---
Discharge Instructions Date of Service Jan 25, 2017. Admission Reason for Admission: Acute Cholecystitis Discharge Discharge Diagnosis / Problem: chronic cholecystitis, acute cholecystitis Discharge Goals Goal(s): Decrease discomfort, Improve function, Improve disease control Activity Recommendations Activity Limitations: as noted below Lifting Limitations: no more than 25 pounds Exercise/Sports Limitations: until after follow-up appointment May Resume Sexual Activity: when tolerated Shower/Bathe: tomorrow Driving or Machine Use: resume 3 days after discharge SPECIAL CARE INSTRUCTIONS: * Cover incisions and change daily for comfort/drainage. * May use ibuprofen for pain as tolerated. * Expect some swelling and bruising. Call your doctor if: * Temperature above 101 degrees * Pain not relieved by pain medicine ordered * There is increased drainage or redness from any incision * You have any unanswered questions or concerns [phone]. FOLLOW UP VISIT: If not already scheduled, please call the office for a follow-up visit. for 2 weeks- check up OFFICE PHONE NUMBER: Dr. Flannery Office . Current Hospital Diet Patient's current hospital diet: Discharge Diet Recommended Diet: Regular Diet Pending Studies Studies pending at discharge: no Medical Emergencies . Who to Call and When: Medical Emergencies: If at any time you feel your situation is an emergency, please call 911 immediately. . Non-Emergent Contact Non-Emergency issues call your: Primary Care Provider, Surgeon . "Provider Documentation" section prepared by Rajinder Flannery. . VTE Core Measure Inpt VTE Proph given/why not?: SCD's
--- NOTE | 2017-01-25 07:05 | [facility] Operative Report ---
Operative Report Operative Date Jan 25, 2017. Pre-Operative Diagnosis acute cholecystitis Post-Operative Diagnosis acute/ chronic cholecystitis Procedure(s) Performed lap juan Surgeon Prudencio Husker Operator Surgeon(s) Wm Serna Findings adhesions and severe edema Specimens gallbladder Anesthesia Gen Complication(s) None Disposition Recovery Room / PACU I attest to the content of the Intraoperative Record and any orders documented therein. Any exceptions are noted below.
[2017-01-25] MEDS ORDERED: BUPIVACAINE 0.5 % 5 MG/1 ML MPF 30ML VIAL ONE (07:06)
[2017-01-25] MEDS ORDERED: CONRAY 60% 50 ML VIAL ONE (07:06)
[2017-01-25] MEDS ORDERED: OXYCODONE/ACETAMINOPHEN 5-325 TAB PO PRN (07:15)
--- NOTE | 2017-01-25 07:18 | History & Physical Bridge Note ---
H&P Re-Evaluation Bridge Note: I have examined the patient, reviewed the History & Physical and in the interval since the performance of the History & Physical I have noted the following changes of clinical significance: No changes noted
[2017-01-25] MEDS ORDERED: ROCURONIUM BROMIDE 10 MG/ML 5 ML VIAL IV ONE (07:53)
[2017-01-25] MEDS ORDERED: SUCCINYLCHOLINE CHLORIDE 20 MG/ML 10 ML VIAL IV ONE (08:04)
[2017-01-25] MEDS ORDERED: CIPR1TAB10 PO (08:32)
--- NOTE | 2017-01-25 08:36 | OPERATIVE REPORT ---
DATE OF OPERATION: 01/25/2017 PREOPERATIVE DIAGNOSIS: Acute cholecystitis. POSTOPERATIVE DIAGNOSIS: Same with chronic cholecystitis. NAME OF OPERATION: Laparoscopic cholecystectomy. STAFF SURGEON: Dr. Flannery. ROAD MONKEY: Efrem Serna PA-C. ANESTHESIA: General. PROCEDURE: The patient was brought in the operating room and placed on the operating table in supine position. His abdomen was prepped and draped in usual fashion. Pneumatic stockings and orogastric tube were placed. Using 0.5% plain Marcaine, all incisions were anesthetized. Incision was made above the umbilicus, carrying dissection down to the fascia, placing a Veress needle producing pneumoperitoneum. An 11 mm port was placed at this level and then under visualization, three 5 mm ports were placed, 1 cephalad and 2 laterally. Gallbladder was very distended and thickened, worse than expected from the imaging preoperatively. There was severe edema in the gallbladder. There were chronic dense adhesions which were taken down. Dissection was carried out at the pedro hepatis, identifying the cystic duct and cystic artery. These were clipped and transected. The gallbladder dissected away from the liver bed. There was severe edema in the posterior wall. There was no evidence of necrosis. After appropriate hemostasis and irrigation, the gallbladder was placed into an Endobag. I did have to enlarge the fascia and skin incisions to accommodate the large gallbladder. The fascia was then closed using interrupted 0 Vicryl suture, then the skin reapproximated using subcuticular 4-0 Monocryl and Dermabond. The patient was transferred to recovery room in stable condition. I attest to the content of the Intraoperative Record and any orders documented therein. Any exception s are noted below.
[2017-01-25] MEDS ORDERED: FENTANYL CITRATE INJ 50 MCG/1 ML 2 ML VIAL IV PRN (08:45)
[2017-01-25] MEDS ORDERED: EpHEDrine SULFATE INJ 50 MG/ML AMP IV PRN (08:45)
[2017-01-25] MEDS ORDERED: PROMETHAZINE HCL INJ 12.5 MG in SODIUM CHLORIDE 0.9% 50ML 50 ML IV PRN (08:45)
[2017-01-25] MEDS ORDERED: NALOXONE HCL 0.4 MG/1 ML VIAL/CARP IV PRN (08:45)
[2017-01-25] MEDS ORDERED: ATROPINE SULFATE 0.1 MG/ML 5ML SYR IV PRN (08:45)
[2017-01-25] MEDS ORDERED: ONDANSETRON INJ 2 MG/ML 2 ML VIAL IV PRN (08:45)
[2017-01-25] MEDS ORDERED: FLUMAZENIL 0.1 MG/1 ML 10 ML VIAL IV PRN (08:45)
--- NOTE | 2017-01-25 09:21 | Anesthesiology Progress Note ---
Anesthesia Post Op Note Date & Time Jan 25, 2017 at 09:21 Vital Signs Pain Intensity: 0 Vital Signs Past 12 Hours Date Time Temp Pulse Resp B/P (MAP) Pulse Ox O2 Delivery O2 Flow Rate FiO2 01/25/17 09:05 36.9 01/25/17 09:01 126/86 01/25/17 08:58 45 12 01/25/17 08:58 45 12 99 01/25/17 08:56 126/82 01/25/17 08:53 48 13 99 01/25/17 08:53 48 13 01/25/17 08:52 47 14 100 01/25/17 08:52 47 14 01/25/17 08:51 125/84 01/25/17 08:47 50 12 01/25/17 08:47 50 12 100 01/25/17 08:46 129/77 01/25/17 08:42 51 12 100 01/25/17 08:42 51 12 01/25/17 08:41 116/79 01/25/17 08:40 50 16 100 01/25/17 08:40 49 16 01/25/17 08:36 120/77 01/25/17 08:35 54 17 01/25/17 08:35 53 17 100 01/25/17 08:31 126/86 01/25/17 08:30 36.8 53 16 126/86 100 Oxymask 10 01/25/17 06:37 36.3 53 14 107/66 (80) 97 Room Air 01/25/17 01:34 36.1 62 16 109/65 96 Room Air 01/25/17 01:20 Room Air 01/25/17 00:50 67 18 118/69 97 Room Air 01/24/17 23:44 37.0 65 18 118/69 97 Room Air Notes Mental Status: alert / awake / arousable, participated in evaluation Pt Amnestic to Procedure: Yes Nausea / Vomiting: adequately controlled Pain: adequately controlled Airway Patency, RR, SpO2: stable & adequate BP & HR: stable & adequate Hydration State: stable & adequate Anesthetic Complications: no major complications apparent
--- NOTE | 2017-01-25 10:34 | Medical Consult ---
Consultation Date of Consultation: Jan 25, 2017. Attending Physician: Rajinder Flannery M.D. Reason for Consultation: Medical management History of Present Illness 26 yo male who presented with RUQ pain, right rib pain and back pain. Found to have signs of cholecystitis on GB ultrasound with stones, sludge and thickened wall. Admitted on 01/[address] Flannery and taken to the OR this morning. Found to have signs of chronic cholecystitis with enlarged gall bladder, adhesions to the liver and edema. No complications with surgery, minimal blood loss, vitals stable in PACU. Asked to see the patient for medical management. Reviewed old records, his history is primarily psychiatric. He had a 302 commitment in August for suicide attempt by hanging. Has symptoms consistent with depression, oppositional defiant disorder, trouble with the law. He and his significant other report that he has been doing well from psych standpoint. He has been working. 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 He is in the process of looking for a home. He denies any suicidal thoughts. No current issues with substance abuse, has a h/ o methamphetamine abuse and opiate abuse. He asked about Depakote causing any issues with gall bladder, explained that it is mainly liver function testing that needs to be followed and his LFT were normal on admission. Past Medical/Surgical History Depression h/o substance abuse (methamphetamine and opiates) h/o suicide attempt by hanging Family History depression, drug abuse, gall bladder disease Social History Smoking Status: Current Every Day Smoker Drug Use: other Marital Status: in relationship Housing Status: lives with significant other Occupation Status: employed Allergies Coded Allergies: Penicillins (Verified Allergy, Mild, Hives, itching, 01/24/17) Tramadol (Unverified Adverse Reaction, Unknown, ITCHING, 01/24/17) Home Medications Depakote 250mg PO BID Seroquel 100mg PO qHS Current Inpatient Medications Current Inpatient Medications Medications (Trade) Dose Ordered Sig/Aleida Route Start Time Stop Time Status Last Admin Dose Admin Lactated Ringer's 1,000 ml @ 80 mls/hr [id number] IV 01/25/17 01:00 02/24/17 00:59 01/25/17 02:13 80 MLS/HR Divalproex Sodium (Depakote Extended Rel Tab) 250 mg BID PO 01/25/17 09:00 02/24/17 08:59 01/25/17 00:22 250 MG Quetiapine Fumarate (seroQUEL TAB) 100 mg HS PO 01/25/17 21:00 02/24/17 20:59 01/25/17 00:21 100 MG Ciprofloxacin/ Dextrose 400 mg/ Prmx 200 ml @ 100 mls/hr Q12H IV 01/25/17 02:00 02/04/17 01:59 01/25/17 02:13 100 MLS/HR Metronidazole 500 mg/Prmx 100 ml @ 100 mls/hr Q8H IV 01/25/17 02:00 02/04/17 01:59 01/25/17 09:42 100 MLS/HR Hydromorphone HCl (Dilaudid Inj) 0.5 mg Q3H PRN IV 01/24/17 23:45 02/07/17 23:44 Hydromorphone HCl (Dilaudid Inj) 1 mg Q3H PRN IV 01/24/17 23:45 02/07/17 23:44 Promethazine HCl 25 mg/Sodium Chloride 51 ml @ 204 mls/hr Q6H PRN IV 01/24/17 23:45 02/23/17 23:44 Ondansetron HCl (Zofran Inj) 4 mg Q6H PRN IV 01/24/17 23:45 02/23/17 23:44 Ketorolac Tromethamine (Toradol Inj) 30 mg Q6H IV. 01/25/17 02:00 01/26/17 20:01 01/25/17 02:12 30 MG Oxycodone/ Acetaminophen (Percocet 5-325mg Tab) 1 tab Q4H PRN PO 01/25/17 07:15 02/08/17 07:14 Oxycodone/ Acetaminophen (Percocet 5-325mg Tab) 2 tab Q4H PRN PO 01/25/17 07:15 02/08/17 07:14 Fentanyl Citrate (Fentanyl Inj) 25 mcg Q5M PRN IV 01/25/17 08:45 01/25/17 13:45 Naloxone HCl (Narcan Inj) 0.2 mg Q2M PRN IV 01/25/17 08:45 01/25/17 13:45 Flumazenil (Romazicon Inj) 0.2 mg Q2M PRN IV 01/25/17 08:45 01/25/17 13:45 Ondansetron HCl (Zofran Inj) 4 mg ONE PRN IV 01/25/17 08:45 01/25/17 13:45 Promethazine HCl 12.5 mg/Sodium Chloride 50.5 ml @ 202 mls/hr ONE PRN IV 01/25/17 08:45 01/25/17 13:45 Ephedrine Sulfate (EpHEDrine SULFATE INJ) 5 mg Q5M PRN IV 01/25/17 08:45 01/25/17 13:45 Atropine Sulfate (Atropine Sulfate 0.1MG/Ml Inj) 0.5 mg Q1M PRN IV 01/25/17 08:45 01/25/17 13:45 Review of Systems Constitutional: + weakness, No fever, No chills, No sweats, No weight loss, No fatigue, No problem reported Eyes: No worsening of vision, No eye pain, No redness, No discharge, No diplopia, No problem reported ENT: No hearing loss, No unusual epistaxis, No nasal symptoms, No sore throat, No tinnitus, No dental problems, No trouble swallowing, No problem reported Respiratory: No cough, No sputum, No wheezing, No shortness of breath, No dyspnea on exertion, No dyspnea at rest, No hemoptysis, No problem reported Cardiovascular: No chest pain, No orthopnea, No PND, No edema, No claudication , No palpitations, No problem reported Abdomen: + pain (RUQ, mild), No nausea, No vomiting, No diarrhea, No constipation, No GI bleeding, No problem reported Musculoskeletal: + joint pain (right ribs), No muscle pain, No swelling, No calf pain, No problem reported Genitourinary - Male: No hematuria, No dysuria, No urinary frequency, No urinary urgency Neurologic: No memory loss, No paralysis, No weakness, No numbness/tingling, No vertigo, No balance problems, No problem reported Psychiatric: No depression symptoms, No anhedonism, No anxiety, No insomnia, No substance abuse, No problem reported Endocrine: No fatigue, No excessive thirst, No excessive urination, No problem reported Hematologic / Lymphatic: No abnormal bleeding/bruising, No clotting problems, No swollen lymph nodes, No night sweats, No problem reported Integumentary: No rash, No itch, No new/changing skin lesions, No color change , No bleeding, No problem reported Allergic / Immunologic: No environmental allergies, No seasonal allergies, No pet sensitivities, No food allergies, No hives, No frequent infections, No poor healing, No prolonged convalescence, No problem reported Physical Exam Date Time Temp Pulse Resp B/P (MAP) Pulse Ox O2 Delivery O2 Flow Rate FiO2 01/25/17 09:59 52 16 127/76 (93) 98 Room Air 01/25/17 09:29 97 Room Air 01/25/17 09:17 47 15 98 01/25/17 09:17 47 15 01/25/17 09:16 143/91 01/25/17 09:12 46 13 98 01/25/17 09:12 46 13 01/25/17 09:11 125/89 01/25/17 09:07 46 17 98 01/25/17 09:07 46 17 01/25/17 09:06 132/83 01/25/17 09:05 36.9 01/25/17 09:02 46 17 01/25/17 09:02 45 17 99 01/25/17 09:01 126/86 01/25/17 08:58 45 12 01/25/17 08:58 45 12 99 01/25/17 08:56 126/82 01/25/17 08:53 48 13 99 01/25/17 08:53 48 13 01/25/17 08:52 47 14 100 01/25/17 08:52 47 14 01/25/17 08:51 125/84 01/25/17 08:47 50 12 01/25/17 08:47 50 12 100 01/25/17 08:46 129/77 01/25/17 08:42 51 12 100 01/25/17 08:42 51 12 01/25/17 08:41 116/79 01/25/17 08:40 50 16 100 01/25/17 08:40 49 16 01/25/17 08:36 120/77 01/25/17 08:35 54 17 01/25/17 08:35 53 17 100 01/25/17 08:31 126/86 01/25/17 08:30 36.8 53 16 126/86 100 Oxymask 10 01/25/17 06:37 36.3 53 14 107/66 (80) 97 Room Air 01/25/17 01:34 36.1 62 16 109/65 96 Room Air 01/25/17 01:20 Room Air 01/25/17 00:50 67 18 118/69 97 Room Air 01/24/17 23:44 37.0 65 18 118/69 97 Room Air 01/24/17 21:13 60 18 142/89 99 Room Air 01/24/17 19:21 36.8 60 18 157/96 99 Room Air General Appearance: WD/WN, no apparent distress Head: normocephalic, atraumatic Eyes: normal inspection, EOMI, sclerae normal ENT: normal ENT inspection, hearing grossly normal, pharynx normal Neck: supple, no adenopathy, no JVD, trachea midline Respiratory/Chest: chest non-tender, lungs clear, normal breath sounds, no respiratory distress, no accessory muscle use Cardiovascular: regular rate, rhythm, no edema, no gallop, no JVD, no murmur, normal peripheral pulses Abdomen/GI: normal bowel sounds, soft, no organomegaly, + tenderness (RUQ) Back: normal inspection, no CVA tenderness, no muscle spasm, normal range of motion Extremities/Musculoskelatal: normal inspection, no calf tenderness, normal capillary refill, no pedal edema, normal range of motion, pelvis stable Neurologic/Psych: specialty development consultant II-XII nml as tested, no motor/sensory deficits, alert, normal mood/affect, normal reflexes, oriented x 3 Skin: normal color, warm/dry, no rash Lymphatic: no adenopathy Laboratory Results Last 24 Hours Test 01/24/17 20:33 01/24/17 21:25 White Blood Count 10.56 K/uL Red Blood Count 4.78 M/uL Hemoglobin 14.2 g/dL Hematocrit 42.8 % Mean Corpuscular Volume 89.5 fL Mean Corpuscular Hemoglobin 29.7 pg Mean Corpuscular Hemoglobin Concent 33.2 g/dl Platelet Count 201 K/uL Mean Platelet Volume 9.6 fL Neutrophils (%) (Auto) 73.6 % Lymphocytes (%) (Auto) 13.0 % Monocytes (%) (Auto) 8.5 % Eosinophils (%) (Auto) 4.2 % Basophils (%) (Auto) 0.4 % Neutrophils # (Auto) 7.78 K/uL Lymphocytes # (Auto) 1.37 K/uL Monocytes # (Auto) 0.90 K/uL Eosinophils # (Auto) 0.44 K/uL Basophils # (Auto) 0.04 K/uL RDW Standard Deviation 43.1 fL RDW Coefficient of Variation 13.1 % Immature Granulocyte % (Auto) 0.3 % Immature Granulocyte # (Auto) 0.03 K/uL Sodium Level 142 mmol/L Potassium Level 3.8 mmol/L Chloride Level 107 mmol/L Carbon Dioxide Level 29 mmol/L Anion Gap 6.0 mmol/L Blood Urea Nitrogen 12 mg/dl Creatinine 0.87 mg/dl Est Creatinine Clear Calc Drug Dose 148.3 ml/min Estimated GFR () 137.1 Estimated GFR (Non- 118.3 BUN/Creatinine Ratio 14.1 Random Glucose 140 mg/dl Calcium Level 8.3 mg/dl Total Bilirubin 0.3 mg/dl Aspartate Amino Transf (AST/SGOT) 7 U/L Alanine Aminotransferase (ALT/SGPT) 23 U/L Alkaline Phosphatase 49 U/L Troponin I < 0.015 ng/ml Total Protein 7.0 gm/dl Albumin 3.7 gm/dl Globulin 3.3 gm/dl Albumin/Globulin Ratio 1.1 Lipase 75 U/L Urine Color YELLOW Urine Appearance CLOUDY Urine pH 6.5 Urine Specific [place] 1.030 Urine Protein NEG Urine Glucose (UA) NEG Urine Ketones NEG Urine Occult Blood NEG Urine Nitrite NEG Urine Bilirubin NEG Urine Urobilinogen NEG Urine Leukocyte Esterase SMALL Urine WBC (Auto) 10-30 /hpf Urine RBC (Auto) 0-4 /hpf Urine Hyaline Casts (Auto) 10-30 /lpf Urine Epithelial Cells (Auto) 20-30 /lpf Urine Bacteria (Auto) NEG Assessment & Plan 26 yo male who presented with acute on chronic cholecystitis - Acute and chronic cholecystitis: s/p lap cholecystectomy 01/25 in the morning diet, pain control and d/c per general surgery caution with narcotics with his history of abuse - Depression, ODD: continue Depakote and Seroquel check LFT in the morning ordered CBC, BMP, LFT for tomorrow AM, likely sign off tomorrow if he is still here stable from a medical perspective if surgery decides to discharge today Additional Copies To Rajinder Flannery M.D.
[2017-01-25] MEDS: OXYCODONE/ACETAMINOPHEN 5-325 TAB PO PRN (13:53)
[2017-01-26] MEDS: METRONIDAZOLE / NSS 500 MG in PREMIXED NSS 100 ML IV SCH (02:35)
[2017-01-26] MEDS: CIPROFLOXACIN / D5W 400 MG in PREMIXED IN D5W 200 ML IV SCH (02:35)
[2017-01-26] MEDS: LACTATED RINGER'S 1000ML 1,000 ML IV SCH (02:36)
[2017-01-26] MEDS: KETOROLAC TROMETHAMINE 30 MG/ML VIAL IV. SCH ×2 (02:37→09:43)
[2017-01-26 03:54] VITALS: BP 112/70; PULSE 74; TEMP 36.8; O2SAT 98
[2017-01-26 06:50] LABS: BASO % 0.2 %; BASO ABS # 0.02 K/uL (0-0.2); COMPLETE YES; EOS % 1.5 %; HEMATOCRIT 38.5 % (42-52); IG% 0.2 %; LYMPH % 16.2 %; LYMPH ABS # 1.85 K/uL (1.2-3.4); MEAN CORPUSCULAR HEMOGLOBIN 30.5 pg (25-34); MEAN CORPUSCULAR HGB CONC 33.5 g/dl (32-36); MEAN PLATELET VOLUME 9.4 fL (7.4-10.4); MONO % 10.5 %; NEUT % 71.4 %; PLATELET COUNT 187 K/uL (130-400); RED BLOOD COUNT 4.23 M/uL (4.7-6.1); WHITE BLOOD COUNT 11.39 K/uL (4.8-10.8)
[2017-01-26 07:28] LABS: ALT/SGPT 35 U/L (12-78); AST/SGOT 15 U/L (15-37); BLOOD UREA NITROGEN 11 mg/dl (7-18); BUN/CREATININE RATIO 16.1 (10-20); CALCIUM 7.6 mg/dl (8.5-10.1); CARBON DIOXIDE 26 mmol/L (21-32); CHLORIDE 109 mmol/L (98-107); CREATININE 0.71 mg/dl (0.60-1.40); GLUCOSE 96 mg/dl (70-99); MAGNESIUM 2.1 mg/dl (1.8-2.4); POTASSIUM 3.6 mmol/L (3.5-5.1); SODIUM 143 mmol/L (136-145)
[2017-01-26 07:35] LABS: ALKALINE PHOSPHATASE 40 U/L (45-117)
--- NOTE | 2017-01-26 07:40 | Surgery Progress Note ---
Surgery Progress Note Date of Service Jan 26, 2017. Subjective Post OP Day: 1 + feeling well, + diet (regular) Objective Vital Signs: Date Time Temp Pulse Resp B/P (MAP) Pulse Ox O2 Delivery O2 Flow Rate FiO2 01/26/17 03:54 36.8 74 14 112/70 (84) 98 Room Air 01/25/17 23:30 Room Air 01/25/17 22:52 36.5 67 16 118/64 (82) 97 Room Air 01/25/17 15:35 36.5 88 18 127/68 (87) 96 Room Air 01/25/17 15:25 Room Air 01/25/17 10:21 36.8 59 17 121/78 (92) 100 01/25/17 09:59 52 16 127/76 (93) 98 Room Air 01/25/17 09:30 36.3 57 14 130/85 (100) 98 Room Air 01/25/17 09:30 98 Room Air 01/25/17 09:29 97 Room Air 01/25/17 09:17 47 15 98 01/25/17 09:17 47 15 01/25/17 09:16 143/91 01/25/17 09:12 46 13 98 01/25/17 09:12 46 13 01/25/17 09:11 125/89 01/25/17 09:07 46 17 98 01/25/17 09:07 46 17 01/25/17 09:06 132/83 01/25/17 09:05 36.9 01/25/17 09:02 46 17 01/25/17 09:02 45 17 99 01/25/17 09:01 126/86 01/25/17 08:58 45 12 01/25/17 08:58 45 12 99 01/25/17 08:56 126/82 01/25/17 08:53 48 13 99 01/25/17 08:53 48 13 01/25/17 08:52 47 14 100 01/25/17 08:52 47 14 01/25/17 08:51 125/84 01/25/17 08:47 50 12 01/25/17 08:47 50 12 100 01/25/17 08:46 129/77 01/25/17 08:42 51 12 100 01/25/17 08:42 51 12 01/25/17 08:41 116/79 01/25/17 08:40 50 16 100 01/25/17 08:40 49 16 01/25/17 08:36 120/77 01/25/17 08:35 54 17 01/25/17 08:35 53 17 100 01/25/17 08:31 126/86 01/25/17 08:30 36.8 53 16 126/86 100 Oxymask 10 General Appearance: WD/WN, no apparent distress Head: normocephalic, atraumatic Neck: supple, trachea midline Respiratory/Chest: lungs clear Cardiovascular: regular rate, rhythm Abdomen: normal bowel sounds, non distended, soft, + tenderness (mild) Incision(s): clean, dry, intact Extremities: non-tender, no pedal edema Laboratory Results: Results Past 24 Hours Test 01/26/17 06:18 Range/Units White Blood Count 11.39 4.8-10.8 K/uL Red Blood Count 4.23 4.7-6.1 M/uL Hemoglobin 12.9 14.0-18.0 g/dL Hematocrit 38.5 42-52 % Mean Corpuscular Volume 91.0 80-100 fL Mean Corpuscular Hemoglobin 30.5 25-34 pg Mean Corpuscular Hemoglobin Concent 33.5 32-36 g/dl Platelet Count 187 130-400 K/uL Mean Platelet Volume 9.4 7.4-10.4 fL Neutrophils (%) (Auto) 71.4 % Lymphocytes (%) (Auto) 16.2 % Monocytes (%) (Auto) 10.5 % Eosinophils (%) (Auto) 1.5 % Basophils (%) (Auto) 0.2 % Neutrophils # (Auto) 8.13 1.4-6.5 K/uL Lymphocytes # (Auto) 1.85 1.2-3.4 K/uL Monocytes # (Auto) 1.20 0.11-0.59 K/uL Eosinophils # (Auto) 0.17 0-0.5 K/uL Basophils # (Auto) 0.02 0-0.2 K/uL RDW Standard Deviation 43.8 36.4-46.3 fL RDW Coefficient of Variation 13.3 11.5-14.5 % Immature Granulocyte % (Auto) 0.2 % Immature Granulocyte # (Auto) 0.02 0.00-0.02 K/uL Sodium Level 143 136-145 mmol/L Potassium Level 3.6 3.5-5.1 mmol/L Chloride Level 109 98-107 mmol/L Carbon Dioxide Level 26 21-32 mmol/L Anion Gap 8.0 3-11 mmol/L Blood Urea Nitrogen 11 7-18 mg/dl Creatinine 0.71 0.60-1.40 mg/dl Est Creatinine Clear Calc Drug Dose 181.8 ml/min Estimated GFR () 149.0 Estimated GFR (Non- 128.6 BUN/Creatinine Ratio 16.1 10-20 Random Glucose 96 70-99 mg/dl Calcium Level 7.6 8.5-10.1 mg/dl Magnesium Level 2.1 1.8-2.4 mg/dl Total Bilirubin 0.3 0.2-1 mg/dl Direct Bilirubin < 0.1 0-0.2 mg/dl Aspartate Amino Transf (AST/SGOT) 15 15-37 U/L Alanine Aminotransferase (ALT/SGPT) 35 12-78 U/L Alkaline Phosphatase 40 45-117 U/L Total Protein 5.4 6.4-8.2 gm/dl Albumin 2.7 3.4-5.0 gm/dl Assessment & Plan s/p lap juan -doing well -discharge
--- NOTE | 2017-01-26 09:17 | Progress Note ---
Progress Note Date of Service Jan 26, 2017. Progress Note 26 yo male who presented with acute on chronic cholecystitis. - Acute and chronic cholecystitis: s/p lap cholecystectomy 01/25 in the morning diet, pain control and d/c per general surgery caution with narcotics with his history of abuse - Depression, ODD: continue Depakote and Seroquel check LFT in the morning\ pt is seen and examined by me. Pt is doing very well, and clear medically for discharge.
[2017-01-26] MEDS: DIVALPROEX 250 MG EXTENDED REL TAB PO SCH (09:40)
[2017-01-26] MEDS: OXYCODONE/ACETAMINOPHEN 5-325 TAB PO PRN (09:46)
[2017-01-26 09:50] VITALS: BP 112/70; PULSE 74; TEMP 36.8; O2SAT 98
--- NOTE | 2017-01-29 08:01 | DISCHARGE SUMMARY ---
PRIMARY DISCHARGE DIAGNOSIS: Acute cholecystitis. PROCEDURE PERFORMED: Laparoscopic cholecystectomy. HOSPITAL COURSE: The patient is a 26-year-old male who presented to the Emergency Department complaining of right upper quadrant abdominal/rib pain. His white count was 10,000. CT and ultrasound were consistent with acute cholecystitis with gallbladder wall thickening. He was admitted to the surgery service overnight, started on IV Cipro and Flagyl and taken to the operating room the next morning for laparoscopic cholecystectomy. Procedure was well tolerated. He was returned to the surgical floor. He was able to increase diet and activity throughout the day. On postoperative day 1, he was tolerating oral analgesics and regular diet. He was stable for discharge. DISCHARGE INSTRUCTIONS: Discharge home. Follow up with Dr. Flannery in 2 weeks. DISCHARGE MEDICATIONS: Cipro 500 mg p.o. b.i.d. x5 and Percocet 1-2 tablets every 6 hours as needed. Continue home Depakote ER 250 mg b.i.d. and Seroquel 100 mg at bedtime.
== END 2017-01-26 10:09 | disposition home or self-care (01) | DRG 419 ==
LOC: C.EDB 18:50 → C.MSW 23:50 → ENRESERV 01-25 00:08
PROVIDERS: ADMIT Surgery; ATTEND Surgery
PROC: 0FT44ZZ Resection of Gallbladder, Percutaneous Endoscopic Approach (ICD-10-PCS; principal; 2017-01-25 07:15)
DX: K81.2 Acute cholecystitis with chronic cholecystitis (principal); K82.8 Other specified diseases of gallbladder; F32.9 Major depressive disorder, single episode, unspecified; F91.3 Oppositional defiant disorder; F17.200 Nicotine dependence, unspecified, uncomplicated; Z91.5 Personal history of self-harm; Z87.898 Personal history of other specified conditions; Z79.899 Other long term (current) drug therapy

== ENCOUNTER 2017-12-05 23:40 | Emergency (ER) | payer SELFPAY ==
[~2017-12-05 23:40] MED LIST changes: -CTP1 PO; +DIVA250T PO; +DIVA500T3 PO; +QUET1TAB34 PO; -THR25 PO; -ZLF50 PO
[2017-12-05 23:42] VITALS: O2SAT 90
[2017-12-05] MEDS ORDERED: ROCURONIUM BROMIDE 10 MG/ML 10 ML VIAL IV ONE (23:43)
[2017-12-05] MEDS ORDERED: LORAZEPAM 2 MG/ML 1 ML VIAL ONE ×2 (23:51→23:55)
[2017-12-05] MEDS ORDERED: SODIUM CHLORIDE 0.9% 1000ML 2,000 ML IV STA (23:57)
[2017-12-06] MEDS ORDERED: LORAZEPAM 2 MG/ML 1 ML VIAL ONE
[2017-12-06 00:04] LABS: HEMOGLOBIN 17.8 g/dL (14.0-18.0); MEAN CELL VOLUME 88.7 fL (80-100); MEAN CORPUSCULAR HGB CONC 34.9 g/dl (32-36); MEAN PLATELET VOLUME 9.1 fL (7.4-10.4); PLATELET COUNT 324 K/uL (130-400); RED CELL DISTRIBUTION WIDTH CV 12.5 % (11.5-14.5); RED CELL DISTRIBUTION WIDTH SD 40.1 fL (36.4-46.3); WHITE BLOOD COUNT 15.04 K/uL (4.8-10.8)
[2017-12-06] MEDS ORDERED: MIDAZOLAM HCL 5 MG/ML 2ML VIAL ONE (00:10)
[2017-12-06] MEDS ORDERED: DIAZEPAM INJ 5 MG/ML 2 ML CARP IV STA (00:23)
[2017-12-06 00:24] LABS: ISTAT CREATININE 1.3 mg/dl (0.6-1.3); ISTAT IONIZED CALCIUM 1.15 mmol/l (1.12-1.32); ISTAT POTASSIUM 4.5 mEq/L (3.3-5.0)
[2017-12-06] MEDS ORDERED: DIAZEPAM 5 MG/ML INJ 10ML VIAL ONE (00:27)
[2017-12-06] MEDS ORDERED: RAPID SEQUENCE INDUCTION BAG ONE (00:32)
[2017-12-06 00:34] LABS: ALBUMIN 4.6 gm/dl (3.4-5.0); ALKALINE PHOSPHATASE 56 U/L (45-117); ALT/SGPT 20 U/L (12-78); AST/SGOT 15 U/L (15-37); BLOOD UREA NITROGEN 10 mg/dl (7-18); CALCIUM 9.2 mg/dl (8.5-10.1); CARBON DIOXIDE 24 mmol/L (21-32); CKMB < 1.0 ng/ml (0.5-3.6); GLUCOSE 159 mg/dl (70-99); POTASSIUM 4.9 mmol/L (3.5-5.1); SODIUM 139 mmol/L (136-145); TOTAL PROTEIN 8.8 gm/dl (6.4-8.2)
[2017-12-06] MEDS ORDERED: PROPOFOL IV EMULSION 10 MG/ML 100 ML VIAL ONE (00:51)
--- NOTE | 2017-12-06 02:13 | EMERGENCY ROOM VISIT NOTE ---
History Report prepared by Andres: Anastasiia Ford Under the Supervision of: Dr. Melissa De La Paz D.O. First contact with patient: 23:48 Chief Complaint: OVERDOSE (INTENTIONAL) Stated Complaint: overdose History of Present Illness The patient is a 26 year old male who presents to the Emergency Room with complaints of episode of an overdose occurring an hour ago. Per the patient's friend, she reports that he had tried to come to her home earlier today, but she wouldn't let him in since he was acting sporadic. She states that she has two kids and doesn't know him well enough to let him in her home. She states that later this evening he messaged her on Facebook saying that he really needed her help. She states that she went to get him in the [facility]. She reports that upon arrival he was hunched over, shaking, pale, and diaphoretic. She states that she immediately brought him here. The patient's friend states that he told her he took 5-6 grams of methamphetamines orally. She states that he admitted to her he has been using meth for the past 4 years. She notes that she was unaware of this. The patient notes that this has happened before. He notes that he also took a sleeping medication with the meth. The patient denies injecting any drugs. Nursing staff notes that the patient told her he was trying to hurt himself when he ingested the meth. Source of History: patient, friend, nursing staff Onset: an hour ago Position: other (diffuse) Quality: other (overdose) Timing: other (episode) Associated Symptoms: + diaphoresis Note: The patient's friend complains of him being pale and shaking. Review of Systems See HPI for pertinent positives & negatives. A total of 10 systems reviewed and were otherwise negative. Past Medical & Surgical Medical Problems: (1) Acute cholecystitis (2) Antisocial behavior (3) Depression not otherwise specified (4) Encounter for wound re-check (5) Involuntary commitment (6) No pertinent past medical history (7) No pertinent past surgical history (8) Opiate abuse, continuous (9) Pilonidal cyst (10) Polysubstance abuse (11) Rule out intermittent explosive disorder (12) Stimulant abuse (13) Unspecified psychosis Surgical Problems: (1) History of cholecystectomy Family History No pertinent family history Social History Smoking Status: Current Every Day Smoker Alcohol Use: none Drug Use: other (methamphetamines) Marital Status: single Housing Status: lives with family Occupation Status: unemployed Current/Historical Medications Unable to Obtain Active Prescriptions or Reported Meds Allergies Coded Allergies: Penicillins (Verified Allergy, Mild, Hives, itching, 12/06/17) Tramadol (Unverified Adverse Reaction, Unknown, ITCHING, 12/06/17) Physical Exam Vital Signs Date Time Temp Pulse Resp B/P (MAP) Pulse Ox O2 Delivery O2 Flow Rate FiO2 12/06/17 02:15 37.4 114 19 152/85 98 12/06/17 01:37 117 12/06/17 01:25 119 16 98 Mechanical Ventilator 12/06/17 01:22 151/74 12/06/17 01:20 121 21 98 Mechanical Ventilator 12/06/17 01:15 126 16 98 Mechanical Ventilator 12/06/17 01:10 132 26 98 Mechanical Ventilator 12/06/17 01:05 139 16 97 Mechanical Ventilator 12/06/17 01:00 100 12/06/17 01:00 145 14 97 Mechanical Ventilator 12/06/17 00:56 107/60 Mechanical Ventilator 12/06/17 00:55 148 32 97 Mechanical Ventilator 12/06/17 00:53 149 12/06/17 00:20 167 40 91 Non-Rebreather 10.0 12/06/17 00:17 120/49 12/06/17 00:15 42.2 12/06/17 00:15 168 31 12/06/17 00:11 190 12/06/17 00:10 166 12/06/17 00:10 170 35 79 Non-Rebreather 10.0 12/06/17 00:07 144/118 12/05/17 23:50 155/101 12/05/17 23:42 37.2 183 28 155/101 90 Nasal Cannula 4.0 12/05/17 23:42 90 Nasal Cannula 4.0 Physical Exam General: Significantly diaphoretic and pale with massive muscle contractions and tremors. HEENT: Head - normocephalic and atraumatic Pupils are 2 mm and reactive to light. Extraocular eye muscles are intact, and sclera are anicteric. Nose - moist nasal mucosa without discharge. Mouth - moist buccal mucosa. Oropharynx is nonerythematous and there is no tonsillar exudate or edema noted. Neck: Supple; no JVD, nuchal rigidity, cervical lymphadenopathy. Heart: Tachycardic rate and regular rhythm. There is a normal S1 and S2 with no murmurs, clicks, or gallops appreciated. Lungs: Clear to auscultation bilaterally with no wheezes, rales, or rhonchi. Abdomen: Soft, completely nontender, distended, with good bowel sounds. There are no palpable pulsatile masses or hepatosplenomegaly. There is no guarding, rigidity, or rebound noted. Extremities: No evidence of cyanosis, clubbing, or edema. There are easily palpable peripheral pulses. Skin: Pale and extremely diaphoretic. There was mottling and petechiae noted about the patient's knees. Neuro: Patient had garbled speech. Attempted to follow commands. Could not appropriately answer questions. Patient's lower extremities were in extended position with muscle contractions. Medical Decision & Procedures ER Provider Diagnostic Interpretation: CHEST X-RAY: The results were interpreted by me. Endotracheal tube 4 cm above the jocelyne. Narrow mediastinum. No other pulmonary pathology. Laboratory Results 12/05/17 23:54 Red Blood Count 5.75, Mean Corpuscular Volume 88.7, Mean Corpuscular Hemoglobin 31.0, Mean Corpuscular Hemoglobin Concent 34.9, Mean Platelet Volume 9.1 12/05/17 23:54 Test 12/05/17 23:54 12/06/17 00:09 12/06/17 00:30 White Blood Count 15.04 K/uL (4.8-10.8) Red Blood Count 5.75 M/uL (4.7-6.1) Hemoglobin 17.8 g/dL (14.0-18.0) Hematocrit 51.0 % (42-52) Mean Corpuscular Volume 88.7 fL (80-100) Mean Corpuscular Hemoglobin 31.0 pg (25-34) Mean Corpuscular Hemoglobin Concent 34.9 g/dl (32-36) Platelet Count 324 K/uL (130-400) Mean Platelet Volume 9.1 fL (7.4-10.4) RDW Standard Deviation 40.1 fL (36.4-46.3) RDW Coefficient of Variation 12.5 % (11.5-14.5) Neutrophils % (Manual) 43.0 % Lymphocytes % (Manual) 20.0 % Variant Lymphocytes % (manual) 27.0 % Monocytes % (Manual) 8.0 % Eosinophils % (Manual) 1.0 % Basophils % (Manual) 1.0 % (0-2) Neutrophils # (Manual) 6.47 K/uL (1.4-6.5) Total Absolute Neutrophils 6.47 K/uL (1.4-6.5) Lymphocytes # (Manual) 3.01 K/uL (1.2-3.4) Absolute Variant Lymphocytes 4.06 K/uL Total Absolute Lymphocytes 7.07 K/uL (1.2-3.4) Monocytes # (Manual) 1.20 K/uL (0.11-0.59) Eosinophils # (Manual) 0.15 K/uL (0-0.5) Basophils # (Manual) 0.15 K/uL (0-0.2) Red Blood Cell Morphology Unremarkable Estimated GFR () 62.7 Estimated GFR (Non- 54.1 BUN/Creatinine Ratio 5.6 (10-20) Calcium Level 9.2 mg/dl (8.5-10.1) Total Bilirubin 1.0 mg/dl (0.2-1) Direct Bilirubin 0.3 mg/dl (0-0.2) Aspartate Amino Transf (AST/SGOT) 15 U/L (15-37) Alanine Aminotransferase (ALT/SGPT) 20 U/L (12-78) Alkaline Phosphatase 56 U/L (45-117) Total Creatine Kinase 176 U/L (39-308) Creatine Kinase MB < 1.0 ng/ml (0.5-3.6) Creatine Kinase MB Ratio (0-3.0) Troponin I < 0.015 ng/ml (0-0.045) Total Protein 8.8 gm/dl (6.4-8.2) Albumin 4.6 gm/dl (3.4-5.0) Thyroid Stimulating Hormone (TSH) 3.310 uIu/ml (0.300-4.500) Salicylates Level 2.2 mg/dl (2.8-20) Acetaminophen Level < 2 ug/ml (10-30) Ethyl Alcohol mg/dL < 3.0 mg/dl (0-3) Bedside Hemoglobin 18.0 g/dl (14.0-18.0) Bedside Hematocrit 53 % (42-52) Bedside Sodium 143 mEq/L (135-144) Bedside Potassium 4.5 mEq/L (3.3-5.0) Bedside Chloride 99 mEq/L (101-112) Bedside Total CO2 23 mEq/l (24-31) Anion Gap 26.0 mmol/L (16-25) Bedside Blood Urea Nitrogen 9 mg/dl (7-18) Bedside Creatinine 1.3 mg/dl (0.6-1.3) Bedside Glucose (other) 160 mg/dl (70-99) Bedside Ionized Calcium (Abram) 1.15 mmol/l (1.12-1.32) Urine Color DK YELLOW Urine Appearance CLEAR (CLEAR) Urine pH 5.5 (4.5-7.5) Urine Specific [place] 1.026 (1.000-1.030) Urine Protein 1+ (NEG) Urine Glucose (UA) NEG (NEG) Urine Ketones 1+ (NEG) Urine Occult Blood NEG (NEG) Urine Nitrite NEG (NEG) Urine Bilirubin NEG (NEG) Urine Urobilinogen NEG (NEG) Urine Leukocyte Esterase TRACE (NEG) Urine WBC (Auto) 5-10 /hpf (0-5) Urine RBC (Auto) 5-10 /hpf (0-4) Urine Hyaline Casts (Auto) 10-30 /lpf (0-5) Urine Epithelial Cells (Auto) >30 /lpf (0-5) Urine Bacteria (Auto) NEG (NEG) Urine Renal Epithelial Cells /lpf (0-5) Urine Pathogenic Casts /lpf (0) Urine Mucus PRESENT (NONE PRSENT) Urine Opiates Screen NEG (NEG) Urine Methadone, Qualitative NEG (NEG) Urine Barbiturates NEG (NEG) Urine Phencyclidine (PCP) Level NEG (NEG) Ur Amphetamine/Methamphetamine POS (NEG) MDMA (Ecstasy) Screen POS (NEG) Urine Benzodiazepines Screen NEG (NEG) Urine Cocaine Metabolite NEG (NEG) Urine Marijuana (THC) NEG (NEG) Laboratory results per my review. Medications Administered Medications (Trade) Dose Ordered Sig/Aleida Route Start Time Stop Time Status Last Admin Dose Admin Lorazepam (Ativan Inj) 2 mg STK-MED ONCE .ROUTE 12/05/17 23:51 12/05/17 23:52 DC 12/05/17 23:57 2 MG Lorazepam (Ativan Inj) 2 mg STK-MED ONCE .ROUTE 12/05/17 23:55 12/05/17 23:56 DC 12/05/17 23:50 2 MG Sodium Chloride 2,000 ml @ 999 mls/hr Q2H1M STAT IV 12/05/17 23:57 12/06/17 01:57 DC 12/05/17 23:57 999 MLS/HR Lorazepam (Ativan Inj) 2 mg STK-MED ONCE .ROUTE 12/06/17 00:00 12/06/17 00:01 DC 12/06/17 00:04 2 MG Midazolam HCl (Versed Inj) 10 mg STK-MED ONCE .ROUTE 12/06/17 00:10 12/06/17 00:11 DC 12/06/17 00:15 5 MG Diazepam (Valium Inj) 100 mg NOW STAT IV 12/06/17 00:23 12/06/17 00:24 DC 12/06/17 00:35 100 MG Miscellaneous (Rapid Sequence Induction Bag) 1 ea STK-MED ONCE N/A 12/06/17 00:32 12/06/17 00:33 DC 12/06/17 00:46 1 EA Propofol (Diprivan Iv Emulsion 100ml Vial) 1 dose STK-MED ONCE .ROUTE 12/06/17 00:51 12/06/17 00:52 DC 12/06/17 00:54 1 DOSE Procedure Endotracheal Intubation Indication: Respiratory Depression. The patient was on 100% oxygen via NRB prior to the procedure. Suction, airway equipment, RSI drugs, respiratory equipment, and appropriate personnel were prepared prior to the initiation of the procedure. A time out was taken. Induction was performed with 100 mg of IV Valium and 75 mg IV Rocuronium. After observing the clinical benefit of the medications, the airway was easily visualized utilizing a glide scope. A 8.0 size ETT tube was placed atraumatically to 24 cm using standard technique. The cuff inflated without signs of malfunction. There were bilateral breath sounds, positive colormetric change, no gastric sounds, and post procedure pulse oximetry was 99%. Post intubation sedation and paralysis was administered using Propofol. There were no complications. 2351: Ordered Ativan Inj 2 mg IV. 2355: Ordered Ativan Inj 2 mg IV. 2357: Ordered NSS 2000 ml @ 999 mls/hr IV. 0000: Ordered Ativan Inj 2 mg IV. 0010: Ordered Versed Inj 10 mg IV. 0023: Ordered Valium Inj 100 mg IV. 0051: Ordered Propofol 1 dose IV. ECG Per My Interpretation Indication: toxicologic Rate (beats per minute): 146 Rhythm: sinus tachycardia Findings: ST depression (lead 2, lead 3, and lead av-F), ST elevation (V1 and V2) ED Course 2349: Past medical records reviewed. The patient was evaluated in room A10. A complete history and physical exam was performed. 2 large-bore IV locks were initiated and the patient was bolused with 2 L of normal saline solution. 2351: Ordered Ativan Inj 2 mg IV. 2355: Ordered Ativan Inj 2 mg IV. 2357: Ordered NSS 2000 ml @ 999 mls/hr IV. 0000: Ordered Ativan Inj 2 mg IV. 0010: Ordered Versed Inj 10 mg IV. 0015: The patient's temperature rectally at this time was 42.2. The patient was moved to room A1. 0016: I updated the friend on the patient at this time. A Rehman catheter was placed. There was no urinary output. 0021: I discussed the patient's case with a Dr. Denton- Toxicology at this time. They recommended 100 mg of IV Valium and if not success controlling the situation with that, paralyze and intubate him. 0022: At this time the patient was moved to A1 and started on a cooling blanket at this time. 0023: Ordered Valium Inj 100 mg IV. 0025: A rectal probe was placed at this time. His temperature was 41.8. 0029: I discussed the patient's case with Dr. Kerns- Capacity Management Specialist. He recommends that the patient be transferred. 0034: I discussed the patient's case with Dr. Kerns-Capacity Management Specialist again. He called back to make me aware that we have Intralipid available if necessary for cardiac instability. 0038: I spoke to the patient's father at this time and updated him on the patient's status. 0048: I intubated the patient at this time. A post intubation chest x-ray was obtained. The endotracheal tube had to be advanced by 2 cm. 0051: Ordered Propofol drip 0054: I discussed the patient's case with Dr. Squires [facility] Capacity Management Specialist. The patient will be transferred and evaluated for further management. We will fly the patient if weather permits. 0102: I reevaluated the patient and he is getting 2L of cold saline now. 0104: I updated the patient's father on the status of his son and where he will be transferred to at this time. 0110: The patient's temperature on reevaluation is down to 40.5. The father and the friend are at the bedside at this time. 0124: I reevaluated the patient and spoke to the patient's father and friend at this time. I updated them that the patient will be going by ground with the [facility] crew. The patient's temp has come down to 37.5. The cooling blanket will be discontinued. 0201: I spoke with the [employer] crew at this time on the patient's condition. Medical Decision The patient is a 26 year old male who presents to the Emergency Room with complaints of episode of an overdose occurring an hour ago. Differential diagnoses include suicide attempt, drug overdose, polysubstance abuse, malignant hyperthermia. LABS: White count 15 Stable H&H BUN 10 Creatinine 1.7 Glucose 159 Normal LFTs Normal TSH Tox screen positive for ecstasy and methamphetamines POC: Glucose 160 BUN 9 Creatinine 1.3 Hemoglobin 18 Potassium 4.5 This is a 26-year-old male patient presents to the emergency department with a friend after taking a significant methamphetamine overdose. The friend states that he ingested 5-6 g of methamphetamine. The patient admitted to nursing staff that he was trying to harm himself. The friend explains that he has a history of abusing methamphetamines for the past 4 years. The patient was extremely diaphoretic and pale on initial evaluation. He had an altered mental status and was extremely tremulous. He had severe muscle spasms throughout his arms legs and chest. IVs were initiated and labs are drawn as above. The patient received multiple dosages of IV benzodiazepines without any beneficial effect. A rectal temp was obtained and found to be 42.2. The patient was placed on a cooling blanket. I discussed the case with the word processor technician and he recommended 100 mg of IV Valium. This was administered and offered very little benefit. I remained significantly concerned about this patient's critical condition and severe hyperthermia. I opted to paralyze the patient, intubate him, and place him on a ventilator. I kept the patient's friend and the patient's father abreast of the situation throughout his stay here in the emergency department. I spoke with the public address servicer here at [facility] and they recommended transfer to a tertiary care center. Arrangements were made for the patient to be transferred to critical care at [facility]. They were unable to fly the patient secondary to whether so he will go by ground ambulance with the [facility] crew. The patient 's vital signs improved prior to discharge/transfer. Heart rate came down to 116. Blood pressure was stable and temp came down to 37.5. Nursing staff petitioned a 302 based on the statement the patient made upon presentation. Medication Reconcilliation Current Medication List: was personally reviewed by me Blood Pressure Screening Patient's blood pressure: Elevated blood pressure Will be further monitored at the transfer facility. Consults Time Called: 2355 Consulting Physician: Dr. Denton- Toxicology Returned Call: 0021 I discussed the patient's case with a Dr. Denton- Toxicology at this time. They recommended 100 mg of IV Valium and if not success controlling the situation with that, paralyze and intubate him. Additional Consults: Time Called: 002 Consulted Physician: Dr. Kerns- Capacity Management Specialist Returned Call: 0029 Additional Comments: I discussed the patient's case with Dr. Jill Calderon. He recommends that the patient be transferred. Time Called: 0033 Consulted Physician: Dr. MelchorCapacity Management Specialist Returned Call: 0034 Additional Comments: I discussed the patient's case with Dr. Tracey again. He called back to make me aware that we have Intralipid available if necessary for cardiac instability. Impression Primary Impression: Poisoning by methamphetamine Additional Impressions: Overdose Hyperthermia Critical Care I have personally spent greater than 140 minutes of critical care time in the direct management of this patient. This includes bedside care, interpretation of diagnostic studies, and testing, discussion with consultants, patient, and family members, and other required patient management activities. This 140 minutes is in excess of all separately billable procedures. Scribe Attestation The scribe's documentation has been prepared under my direction and personally reviewed by me in its entirety. I confirm that the note above accurately reflects all work, treatment, procedures, and medical decision making performed by me. Departure Information Dispostion Transfer Acute Care Facility Prescriptions Unable to Obtain Active Prescriptions or Reported Meds Referrals Tone Cummins M.D. (PCP) Patient Instructions My [facility] Problem Qualifiers Additional Impressions: Overdose Encounter type: initial encounter Injury intent: intentional self-harm Qualified Codes: T50.902A - Poisoning by unspecified drugs, medicaments and biological substances, intentional self-harm, initial encounter
[2017-12-06 02:15] VITALS: BP 152/85; PULSE 114; TEMP 37.4; O2SAT 98
--- NOTE | 2017-12-06 07:20 | DIAGNOSTIC IMAGING REPORT ---
CHEST ONE VIEW PORTABLE HISTORY: post intubation COMPARISON: Chest 08/16/2015. FINDINGS: Endotracheal tube terminates 6.4 cm from the jocelyne. The heart is normal in size. The lungs are clear. No pleural effusions. No pneumothorax. IMPRESSION: The endotracheal tube terminates 6.4 cm from the jocelyne. This should be advanced by approximately 2 to 3 cm. Electronically signed by: Zbigniew Jim M.D. 12/06/2017 7:19 AM Dictated Date/Time: 12/06/2017 7:17 AM
== END 2017-12-06 02:15 | disposition short-term general hospital (02) ==
LOC: C.EDB 23:42 → C.EDA 12-06 02:15
DX: T43.622A Poisoning by amphetamines, intentional self-harm, initial encounter (principal); R50.9 Fever, unspecified; R00.0 Tachycardia, unspecified; F32.9 Major depressive disorder, single episode, unspecified; Z88.0 Allergy status to penicillin; Z88.6 Allergy status to analgesic agent; F17.200 Nicotine dependence, unspecified, uncomplicated